=== PATIENT | male | born 1955 | race Caucasian/White ===

== ENCOUNTER 2021-11-04 10:14 | Outpatient (REF) | payer MEDICARE, SELFPAY ==
[2021-11-04 11:54] LABS: MANUAL DIFF FLAG NO
[2021-11-04 12:01] LABS: Basophils Percent Auto 0.5 % (0-2); Eosinophils Absolute Auto 0.1 X10*3/uL (0.0-0.4); Eosinophils Percent Auto 2.1 % (0-4); Hematocrit 41.7 % (42.0-52.0); Hemoglobin 13.6 g/dl (14.0-18.0); Imm Gran Abs Auto 0.02 X10*3/uL (0.00-0.03); Imm Gran Pct Auto 0.3 % (0.0-0.4); Lymphocytes Absolute Auto 2.9 X10*3/uL (1.2-4.9); Lymphocytes Percent Auto 45.8 % (20-40); Mean Corpuscular HGB Conc 32.6 g/dl (31.0-36.0); Mean Corpuscular Hemoglobin 31.2 pg (27.0-33.0); Mean Corpuscular Volume 95.6 fL (80.0-98.0); Mean Platelet Volume 9.6 fL (9.4-12.4); Monocytes Absolute Auto 0.6 X10*3/uL (0.1-1.2); Neutrophils Absolute Auto 2.6 x10*3/uL (2.0-8.3); Neutrophils Percent Auto 42.3 % (45-73); Platelet Count 327 X10*3/uL (160-400); Red Blood Count 4.36 X10*6/uL (4.60-5.80); Red Cell Distribution Width 12.4 % (11.0-16.0); White Blood Count 6.2 X10*3/uL (4.8-10.8)
[2021-11-04 12:39] LABS: Erythrocyte Sedimentation Rate 40 MM/HR (0-15)
[2021-11-09 17:37] LABS: Cyclic Citrullinated Peptide 137 UNITS
== END 2021-11-04 10:15 | disposition home or self-care (01) ==
LOC: HO.LAB 10:14
PROVIDERS: PCP Internal Medicine; Visit Provider Internal Medicine Rheumatology
DX: M05.9 Rheumatoid arthritis with rheumatoid factor, unspecified (principal); M19.071 Primary osteoarthritis, right ankle and foot; M19.072 Primary osteoarthritis, left ankle and foot; Z96.659 Presence of unspecified artificial knee joint; Z79.899 Other long term (current) drug therapy
CPT/HCPCS: 36415; 85025; 85652; 86200; 99212

== ENCOUNTER 2022-03-04 10:48 | Outpatient (REF) | payer MEDICARE, SELFPAY ==
[2022-03-04 13:17] LABS: MANUAL DIFF FLAG NO
[2022-03-04 13:23] LABS: Basophils Absolute Auto 0.1 X10*3/uL (0.0-0.2); Basophils Percent Auto 0.8 % (0-2); Eosinophils Absolute Auto 0.2 X10*3/uL (0.0-0.4); Eosinophils Percent Auto 2.3 % (0-4); Hematocrit 41.2 % (42.0-52.0); Hemoglobin 13.7 g/dl (14.0-18.0); Imm Gran Abs Auto 0.01 X10*3/uL (0.00-0.03); Imm Gran Pct Auto 0.2 % (0.0-0.4); Lymphocytes Absolute Auto 2.6 X10*3/uL (1.2-4.9); Lymphocytes Percent Auto 40.3 % (20-40); Mean Corpuscular HGB Conc 33.3 g/dl (31.0-36.0); Mean Corpuscular Volume 93.2 fL (80.0-98.0); Mean Platelet Volume 10.3 fL (9.4-12.4); Monocytes Absolute Auto 0.7 X10*3/uL (0.1-1.2); Monocytes Percent Auto 10.2 % (2-11); Neutrophils Percent Auto 46.2 % (45-73); Platelet Count 364 X10*3/uL (160-400); Red Blood Count 4.42 X10*6/uL (4.60-5.80); Red Cell Distribution Width 12.5 % (11.0-16.0); White Blood Count 6.5 X10*3/uL (4.8-10.8)
[2022-03-04 13:49] LABS: C Reactive Protein 0.74 mg/dL (< or = 0.50)
[2022-03-04 14:11] LABS: Erythrocyte Sedimentation Rate 38 MM/HR (0-15)
== END 2022-03-04 10:49 | disposition home or self-care (01) ==
LOC: HO.10HDL 10:48
PROVIDERS: Visit Provider Internal Medicine Rheumatology
DX: M65.9 Synovitis and tenosynovitis, unspecified (principal); M05.9 Rheumatoid arthritis with rheumatoid factor, unspecified; Z79.899 Other long term (current) drug therapy; Z96.659 Presence of unspecified artificial knee joint
CPT/HCPCS: 36415; 85025; 85652; 86140; 99212

== ENCOUNTER → 2022-08-03 11:06 | Outpatient (BNVA) | payer MEDICARE, SELFPAY | PROVIDERS: PCP Physician Assistant Medical; Visit Provider Internal Medicine Rheumatology | DX: M05.9 Rheumatoid arthritis with rheumatoid factor, unspecified (principal); M85.80 Other specified disorders of bone density and structure, unspecified site; M19.072 Primary osteoarthritis, left ankle and foot; M19.071 Primary osteoarthritis, right ankle and foot; Z96.659 Presence of unspecified artificial knee joint; Z79.899 Other long term (current) drug therapy | CPT/HCPCS: 99212 ==

== ENCOUNTER 2022-08-03 12:09 | Outpatient (REF) | payer MEDICARE, SELFPAY ==
[2022-08-03 14:40] LABS: Erythrocyte Sedimentation Rate 31 MM/HR (0-15)
[2022-08-07 14:48] LABS: Vitamin D 25-OH, D2 <4 ng/mL; Vitamin D 25-OH, D3 37 ng/mL; Vitamin D 25-OH, Total 37 ng/mL (30-100)
== END 2022-08-03 12:10 | disposition home or self-care (01) ==
LOC: HO.10HDL 12:09
PROVIDERS: Visit Provider Internal Medicine Rheumatology
DX: M85.80 Other specified disorders of bone density and structure, unspecified site (principal); M05.9 Rheumatoid arthritis with rheumatoid factor, unspecified; M19.071 Primary osteoarthritis, right ankle and foot; M19.072 Primary osteoarthritis, left ankle and foot; Z79.899 Other long term (current) drug therapy; Z96.651 Presence of right artificial knee joint
CPT/HCPCS: 36415; 82306; 85652; 86140

== ENCOUNTER → 2023-01-12 10:54 | Outpatient (BNVA) | payer MEDICARE, SELFPAY | PROVIDERS: PCP Physician Assistant Medical; Visit Provider Internal Medicine Rheumatology | DX: M05.9 Rheumatoid arthritis with rheumatoid factor, unspecified (principal); Z79.899 Other long term (current) drug therapy | CPT/HCPCS: 99212 ==

== ENCOUNTER 2023-05-26 11:35 | Outpatient (REF) | payer MEDICARE, SELFPAY ==
[2023-05-26 14:01] LABS: Erythrocyte Sedimentation Rate 34 MM/HR (0-15)
[2023-05-26 14:08] LABS: C Reactive Protein 0.12 mg/dL (< or = 0.50)
== END 2023-05-26 11:36 | disposition home or self-care (01) ==
LOC: HO.10HDL 11:35
PROVIDERS: Visit Provider Internal Medicine Rheumatology
DX: M05.9 Rheumatoid arthritis with rheumatoid factor, unspecified (principal); Z79.899 Other long term (current) drug therapy
CPT/HCPCS: 36415; 85652; 86140

== ENCOUNTER 2023-06-01 10:37 | Outpatient (AMB) | payer MEDICARE, SELFPAY ==
--- NOTE | 2023-06-01 10:50 | A.OFFVIS_ITS ---
Intake Vital Signs 06/01/23 10:51 Height 5 ft 3 in Weight 175 lb 11.335 oz BMI 31.1 BP 100/62 Blood Pressure Location Lt brachial Position Sitting Pulse 73 Pulse Source Pulse Oximeter Temp 97.2 F Temp Source Skin Pulse Oximetry (%) 98 Oxygen Delivery Method Room Air Intake Visit Reasons: ra Intake Note: Patient presents today to follow up on RA. 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 Accompanied by: Self / Same As Patient Allergies acetaminophen [From Excedrin Migraine] Allergy (Intermediate, Verified 06/01/23 10:51) Hives caffeine [From Excedrin Migraine] Allergy (Intermediate, Verified 06/01/23 10:51) Hives Penicillins Allergy (Intermediate, Verified 06/01/23 10:51) Hives Medication List - Last Reconciled 06/01/23 by Jarrod Petty MD adalimumab (Humira Pen) 40 mg subcut Q2W alendronate 70 mg PO QWEEK atorvastatin 20 mg PO DAILY cholecalciferol (vitamin D3) 25 mcg PO DAILY clonazepam 0.5 mg PO BEDTIME PRN trazodone 50 mg PO BEDTIME PRN vilazodone 40 mg PO DAILY HPI HPI Comments History of Present Illness Details The patient returns for evaluation of her rheumatoid arthritis. She remains on Humira 40 mg every 2 weeks. That seems to be working fine. She gets occasional discomfort in the feet as before. Her knee replacement seems to be functioning fine. She remains on the alendronate 70 mg once a week. This was started at the end of 2021. There have been no side effects with the alendronate. She is also on some vitamin-D supplement. She is followed in Psychiatry for anxiety and depression currently on vilazodone, trazodone, and clonazepam. [facility] Medical History (Updated 06/01/23 @ 11:21 by Jarrod Petty MD) Long-term use of immunosuppressant medication Osteoarthritis of foot, left Osteoarthritis of foot, right Seropositive rheumatoid arthritis Surgical History History of knee joint replacement Social History Household Members: Spouse Housing: Apartment Are you a primary child care specialist to a significant other at home: No Do you presently have visiting nurse or other home services: No 75 years or older and lives alone: No Alcohol intake: never Patient Tobacco Use Status: Former Tobacco user Years Smoked: Quit 1983 e-Cigarette/Vaping Use: Never Used service: No Current occupational status: retired Review of Systems Const Details: Negative for appetite change, weight change, fever, chills, malaise and fatigue Eyes Details: Negative for vision change, dry eyes,headaches and dizziness Card Details: Negative chest pain, edema and syncope Resp Details: Negative for SOB, cough and wheezing GI Details: Negative indigestion/heartburn, nausea, abdominal pain, bowel changes, diarrhea, constipation and bloody stool. Elie/Lymph Details: Negative for excessive bruising or bleeding. Physical Exam Vital Signs: Last Vital Signs Temp 97.2 F 06/01/23 10:51 Pulse 73 06/01/23 10:51 BP 100/62 06/01/23 10:51 Pulse Ox 98 06/01/23 10:51 Oxygen Delivery Method Room Air 06/01/23 10:51 BMI result Body Mass Index 31.1 APPEARANCE: Patient in no acute distress EYES no redness, pupils equal and reactive to light, eyelids normal EXTREMITIES: No edema, no calf tenderness, normal peripheral pulses. JOINT EXAM: Cervical Spine:.? Full range of motion without pain; no tenderness. Thoracic Spine:.? No scoliosis.? No tenderness on palpation. Lumbar Spine:.? Alignment normal.? Full range of motion without pain, no tenderness. Chest Wall:.? No tenderness, swelling, increased warmth or erythema. Hands:? Right:? Normal pain-free range of motion.? There is no flexor?tendon tenderness or triggering.? There is some slight nontender bony enlargement at the IP joint of the thumb. Otherwise there is no joint swelling or tenderness.. ? There is no thenar atrophy or sensory loss.? Left: Normal pain-free range of motion.? There is no triggering apparent on the tendons today.? There is no flexor tendon swelling or tenderness.? Elsewhere in the hand there is no? tenderness, swelling, increased warmth or erythema. Wrists:? Normal pain-free range of motion without tenderness, swelling, increased warmth or erythema. Elbows:. Normal pain-free range of motion without tenderness, swelling, increased warmth or erythema. Shoulders:.?? Full range of motion without pain. No tenderness, weakness, swelling, increased warmth or erythema. Hips:.? Full range of motion without pain. Hip bursa:.? No tenderness. Knees:? Right:? Normal pain-free range of motion.? Well-healed surgical scar with no tenderness, redness or swelling.? Left:? Normal pain-free range of motion with some slight medial compartment tenderness but no swelling, increased warmth or erythema.? There is no effusion or crepitation Ankles:.? Right: Slight pain with extremes of motion and some mild lateral tenderness but no swelling, redness or warmth.? Left:? Normal range of motion with some slight discomfort at the extremes of inversion and eversion with some minimal medial and lateral tenderness but no swelling, increased warmth or erythema. Feet:.? Right:? There is fusion of the right 1st MTP which is not tender today.? There is no soft tissue swelling, redness or warmth however.? Today there is no tenderness or swelling in the instep or MTPs.? No tenderness in the toes.? Left:? Minimal? discomfort with normal range of motion at the 1st MTP joint.? There is some slight tenderness at the 1st 2 MTP joints. There is slight hallux valgus deformity at the 1st toe.? In the rest of the foot there is no effusion, swelling, increased warmth or erythema. Tender points:? No tenderness to digital palpation at the occiput, trapezius, second rib, lateral epicondyle, knees, greater trochanter and gluteal area bilaterally. ? Results Reviewed Results Reviewed: Laboratory Tests 08/03/22 08/03/22 05/26/23 12:12 12:12 11:40 ESR 31 H 34 H C-Reactive Protein 0.60 H 05/26/23 11:40 ESR C-Reactive Protein 0.12 Assessment & Plan Assessment & Plan (1) History of knee joint replacement: Comment: 2019 Code(s): Z96.659 - Presence of unspecified artificial knee joint (2) Long-term use of immunosuppressant medication: Code(s): Z79.899 - Other fdc (current) drug therapy (3) Osteopenia: Comment: 03/05:Lumbar Spine T-score is -2.1. This is considered osteopenia by WHO criteria. 23% risk of major osteoporotic fracture and a 5.3% risk of hip fracture over the next 10 years. (World Health Organization Fracture Risk Left Hip T-score is -2.2.This is considered osteopenia by WHO criteria. alendronate started 07/2022 Code(s): M85.80 - Other specified disorders of bone density and structure, unspecified site (4) Seropositive rheumatoid arthritis: Comment: Onset February 2012, CCP and RF sero-positive. Methotrexate started 04/26; Enbrel added 04/27; methotrexate stopped 04/28 due to elevated lft's. Plaquenil added 06/28(eye exam OK 02/26, 04/29, 10/28, 04/30, 06/30, 12/29,07/01, 12/30, 07/02, 12/31, 07/03,04/03, 10/2020). 06/2021 - Hydroxychloroquine stopped due to nausea 2015: Humira in place of Enbrel to try to improve response Code(s): M05.9 - Rheumatoid arthritis with rheumatoid factor, unspecified Plan Rheumatoid arthritis with good control of synovitis with current treatment. Inflammatory markers remain markedly improved. The knee replacement seems to be functioning fine for now. She is toerating the alendronate for her osteopenia. She will continue with alendronate and Humira as I do not see any adverse effects from the medication. She was advised to get the influenza and COVID vaccinations this fall. Follow-up in about 5 months would be reasonable with lab work before that visit. Orders: Orders Complete Blood Count Auto Diff Today M05.9 - Rheumatoid arthritis with rheumato id factor, unspecified, Z79.899 - Other fdc (current) drug therapy Erythrocyte Sedimentation Rate Today M05.9 - Rheumatoid arthritis with rheumatoid factor, unspecified C Reactive Protein Today M05.9 - Rheumatoid arthritis with rheumatoid factor, unspecified Coding Level of Care Code Est Pt Level 3 (73090) Diagnoses History of knee joint replacement Z96.659 Long-term use of immunosuppressant medication Z79.899 Osteopenia M85.80 Seropositive rheumatoid arthritis M05.9
[2023-06-01 10:51] VITALS: BP 100/62; PULSE 73; TEMP 36.2; O2SAT 98; BMI 31.1
== END 2023-06-01 11:24 | disposition home or self-care (01) ==
PROVIDERS: PCP Physician Assistant Medical; Visit Provider Internal Medicine Rheumatology
DX: M05.79 Rheumatoid arthritis with rheumatoid factor of multiple sites without organ or systems involvement (principal); Z96.659 Presence of unspecified artificial knee joint; Z79.899 Other long term (current) drug therapy; M85.80 Other specified disorders of bone density and structure, unspecified site
CPT/HCPCS: 99213

== ENCOUNTER → 2023-06-01 10:37 | Outpatient (BNVA) | payer MEDICARE, SELFPAY | PROVIDERS: PCP Physician Assistant Medical; Visit Provider Internal Medicine Rheumatology | DX: M05.9 Rheumatoid arthritis with rheumatoid factor, unspecified (principal); M85.80 Other specified disorders of bone density and structure, unspecified site; Z96.659 Presence of unspecified artificial knee joint; Z79.899 Other long term (current) drug therapy | CPT/HCPCS: 99212 ==

== ENCOUNTER 2023-10-28 11:09 | Outpatient (REF) | payer MEDICARE, SELFPAY ==
[2023-10-28 11:29] LABS: MANUAL DIFF FLAG NO
[2023-10-28 12:23] LABS: Basophils Percent Auto 0.4 % (0-2); Eosinophils Absolute Auto 0.1 X10*3/uL (0.0-0.4); Eosinophils Percent Auto 1.4 % (0-4); Hemoglobin 14.1 g/dl (14.0-18.0); Imm Gran Abs Auto 0.02 X10*3/uL (0.00-0.03); Imm Gran Pct Auto 0.3 % (0.0-0.4); Lymphocytes Percent Auto 39.4 % (20-40); Mean Corpuscular HGB Conc 33.6 g/dl (31.0-36.0); Mean Corpuscular Hemoglobin 32.3 pg (27.0-33.0); Mean Corpuscular Volume 96.3 fL (80.0-98.0); Mean Platelet Volume 10.3 fL (9.4-12.4); Monocytes Absolute Auto 0.8 X10*3/uL (0.1-1.2); Monocytes Percent Auto 10.1 % (2-11); Neutrophils Absolute Auto 3.7 x10*3/uL (2.0-8.3); Neutrophils Percent Auto 48.4 % (45-73); Platelet Count 326 X10*3/uL (160-400); Red Blood Count 4.36 X10*6/uL (4.60-5.80); Red Cell Distribution Width 12.1 % (11.0-16.0); White Blood Count 7.7 X10*3/uL (4.8-10.8)
[2023-10-28 12:56] LABS: C Reactive Protein < 0.10 mg/dL (< or = 0.50)
[2023-10-28 13:28] LABS: Erythrocyte Sedimentation Rate 23 MM/HR (0-15)
== END 2023-10-28 11:10 | disposition home or self-care (01) ==
LOC: HO.LAB 11:09
PROVIDERS: Visit Provider Internal Medicine Rheumatology
DX: M05.9 Rheumatoid arthritis with rheumatoid factor, unspecified (principal); Z79.899 Other long term (current) drug therapy
CPT/HCPCS: 36415; 85025; 85652; 86140

== ENCOUNTER 2023-11-01 14:22 | Outpatient (AMB) | payer MEDICARE, SELFPAY ==
[2023-11-01 14:30] VITALS: BP 112/66; PULSE 79; O2SAT 97; BMI 31.4
--- NOTE | 2023-11-01 14:30 | A.OFFVIS_ITS ---
Intake Vital Signs 11/01/23 14:30 Height 5 ft 3 in Weight 177 lb 0.499 oz BMI 31.4 BP 112/66 Blood Pressure Location Rt brachial Position Sitting Pulse 79 Pulse Source Pulse Oximeter Pulse Oximetry (%) 97 Oxygen Delivery Method Room Air Intake Visit Reasons: ra Intake Note: Patient last seen 06/01/[address] Petty, presents today for follow up and test results. 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 Consultant Required: No Accompanied by: Self / Same As Patient Allergies acetaminophen [From Excedrin Migraine] Allergy (Intermediate, Verified 11/01/23 14:35) Hives caffeine [From Excedrin Migraine] Allergy (Intermediate, Verified 11/01/23 14:35) Hives Penicillins Allergy (Intermediate, Verified 11/01/23 14:35) Hives Medication List - Last Reconciled 11/01/23 by Amanuel Romero MD adalimumab (Humira Pen) 40 mg subcut Q2W alendronate 70 mg PO QWEEK atorvastatin 20 mg PO DAILY cholecalciferol (vitamin D3) 25 mcg PO DAILY clonazepam 0.5 mg PO BEDTIME PRN dextroamphetamine-amphetamine 10 mg ER 1 cap PO QAM trazodone 50 mg PO BEDTIME PRN vilazodone 40 mg PO DAILY HPI HPI Comments History of Present Illness Details 68-year-old female with seropositive RA returns for follow-up. She is on Humira every other week. On alendronate 70 mg weekly. She has no complaints today. Compliant with medications. She denies any cough or shortness of breath Most recent history by Dr. Petty 05/2023: The patient returns for evaluation of her rheumatoid arthritis. She remains on Humira 40 mg every 2 weeks. That seems to be working fine. She gets occasional discomfort in the feet as before. Her knee replacement seems to be functioning fine. She remains on the alendronate 70 mg once a week. This was started at the end of 2021. There have been no side effects with the alendronate. She is also on some vitamin-D supplement. She is followed in Psychiatry for anxiety and depression currently on vilazodone, trazodone, and clonazepam. [facility] Medical History Long-term use of immunosuppressant medication Osteoarthritis of foot, left Osteoarthritis of foot, right Seropositive rheumatoid arthritis Surgical History History of knee joint replacement Social History Household Members: Spouse Housing: Apartment Are you a primary managed care provider to a significant other at home: No Do you presently have visiting nurse or other home services: No 75 years or older and lives alone: No Alcohol intake: never Patient Tobacco Use Status: Former Tobacco user Years Smoked: Quit 1983 e-Cigarette/Vaping Use: Never Used service: No Current occupational status: retired Review of Systems Card Denies dyspnea Resp Denies cough and Denies dyspnea Musc Denies arthralgias, Denies joint swelling and Denies stiffness Physical Exam Vital Signs: Last Vital Signs Pulse 79 11/01/23 14:30 BP 112/66 11/01/23 14:30 Pulse Ox 97 11/01/23 14:30 Oxygen Delivery Method Room Air 11/01/23 14:30 BMI result Body Mass Index 31.4 Const General: cooperative, healthy appearing and comfortable Nutritional Appearance: obese Orientation/consciousness: patient oriented x3 Limitations: no limitations HEENT Head: Yes normocephalic and Yes atraumatic Mouth: moist mucous membranes Resp Effort & Inspection: normal respiratory effort and able to speak in complete sentences Auscultation: clear to auscultation bilaterally Cardio Rate: regular rate Skin General skin exam: dry skin Neuro General: patient oriented x3 Extrem Other: No active synovitis Normal nailfold capillaroscopy Normal range of motion of hands, wrists, elbows and shoulders without pain Assessment & Plan Assessment & Plan (1) Seropositive rheumatoid arthritis: Comment: ++RF++CCP Onset 02/2012 MTX 04/2012; Enbrel added 04/2013; methotrexate stopped 04/2014 due to elevated lft's.HCQ added 06/2014(eye exam OK 02/26, 04/29, 10/28, 04/30, 06/30, 12/29,07/01, 12/30, 07/02, 12/31, 07/03,04/03, 10/2020). 06/2021 - Hydroxychloroquine stopped due to nausea 06/2016: Humira effective Code(s): M05.9 - Rheumatoid arthritis with rheumatoid factor, unspecified Plan: This is a 68-year-old female with seropositive RA who presents for follow-up. This is her 1st visit with me. She used to follow-up with Dr. Petty. She is doing quite well on Humira 40 mg every other week. Continue Humira 40 mg every other week. Labs before next visit in 5 months (2) Long-term use of immunosuppressant medication: Code(s): Z79.899 - Other group home (current) drug therapy Plan: Patient to hold Humira for any signs of infection or fever and call the clinic (3) Osteopenia: Comment: 03/05:Lumbar Spine T-score is -2.1. This is considered osteopenia by WHO criteria. 23% risk of major osteoporotic fracture and a 5.3% risk of hip fracture over the next 10 years. (World Health Organization Fracture Risk Left Hip T-score is -2.2.This is considered osteopenia by WHO criteria. al endronate started 07/2022 Code(s): M85.80 - Other specified disorders of bone density and structure, unspecified site Qualifiers: Osteopenia location: multiple sites Qualified Code(s): M85.89 - Other specified disorders of bone density and structure, multiple sites Plan: On alendronate 70 mg weekly. Well-tolerated. On vitamin-D 1000 units daily. Advised patient to increase her calcium weekly by increasing her dairy products such as low-fat yogurt, milk Will check vitamin-D level before next visit. Plan to repeat DEXA around 07/2024 Orders: Orders C Reactive Protein 5 Months M05.9 - Rheumatoid arthritis with rheumatoid factor, unspecified, Z79.899 - Other group home (current) drug therapy T Spot TB 5 Months Z11.7 - Encounter for testing for latent tuberculosis infection Vitamin D 25-OH (D2 and D3) 5 Months Z13.21 - Encounter for screening for nutritional disorder Complete Blood Count Auto Diff 5 Months M05.9 - Rheumatoid arthritis with rheumatoid factor, unspecified, Z79.899 - Other group home (current) drug therapy Comprehensive Met. Panel 5 Months M05.9 - Rheumatoid arthritis with rheumatoid factor, unspecified, Z79.899 - Other salvage determiner (current) drug therapy Erythrocyte Sedimentation Rate 5 Months M05.9 - Rheumatoid arthritis with rheumatoid factor, unspecified, Z79.899 - Other salvage determiner (current) drug therapy Hepatitis A,B,C Profile 5 Months Z11.59 - Encounter for screening for other viral diseases Coding Level of Care Code Est Pt Level 4 (17028) Diagnoses Seropositive rheumatoid arthritis M05.9 Long-term use of immunosuppressant medication Z79.899 Osteopenia of multiple sites M85.89 Osteopenia location: multiple sites
== END 2023-11-01 14:55 | disposition home or self-care (01) ==
PROVIDERS: PCP Physician Assistant Medical; Visit Provider Student in an Organized Health Care Education/Training Program
DX: M05.79 Rheumatoid arthritis with rheumatoid factor of multiple sites without organ or systems involvement (principal); Z79.899 Other long term (current) drug therapy; M85.89 Other specified disorders of bone density and structure, multiple sites
CPT/HCPCS: 99214

== ENCOUNTER → 2023-11-01 14:22 | Outpatient (BNVA) | payer MEDICARE, SELFPAY | PROVIDERS: PCP Physician Assistant Medical; Visit Provider Student in an Organized Health Care Education/Training Program | DX: M05.9 Rheumatoid arthritis with rheumatoid factor, unspecified (principal); M85.89 Other specified disorders of bone density and structure, multiple sites; Z79.620 Long term (current) use of immunosuppressive biologic; Z79.83 Long term (current) use of bisphosphonates | CPT/HCPCS: 99212 ==

== ENCOUNTER 2024-04-02 11:43 | Outpatient (REF) | payer MEDICARE, SELFPAY ==
[2024-04-02 13:46] LABS: Alanine Aminotransferase 15 U/L (0-31); Albumin Level 3.8 g/dL (3.5-5.0); Alkaline Phosphatase 53 U/L (39-117); Anion Gap 14 (12-20); Aspartate Amino Transferase 19 U/L (5-31); Bilirubin Total 0.6 mg/dL (0.0-1.0); Blood Urea Nitrogen 17 mg/dL (9-16); Carbon Dioxide 22 mmol/L (22-29); Chloride 108 mmol/L (96-108); Estimated Glomerular Filt Rate > 60; Glucose Random 149 mg/dL (60-115); Potassium 4.2 mmol/L (3.3-5.1); Sodium 140 mmol/L (135-145); Total Protein 7.4 g/dL (6.5-8.0)
[2024-04-02 14:02] LABS: Erythrocyte Sedimentation Rate 51 MM/HR (0-20)
[2024-04-05 09:02] LABS: TS Negative Control Passed; TS Panel A 0; TS Panel B 0; TS Positive Control Passed; TSpotTB Negative (Negative)
[2024-04-07 14:12] LABS: Vitamin D 25-OH, D2 <4 ng/mL; Vitamin D 25-OH, D3 37 ng/mL; Vitamin D 25-OH, Total 37 ng/mL (30-100)
== END 2024-04-02 11:44 | disposition home or self-care (01) ==
LOC: HO.10HDL 11:43
PROVIDERS: Visit Provider Student in an Organized Health Care Education/Training Program
DX: M05.9 Rheumatoid arthritis with rheumatoid factor, unspecified (principal); Z11.7 Encounter for testing for latent tuberculosis infection; Z13.21 Encounter for screening for nutritional disorder; Z79.899 Other long term (current) drug therapy
CPT/HCPCS: 36415; 80053; 82306; 85652; 86140; 86481

== ENCOUNTER 2024-04-11 13:55 | Outpatient (AMB) | payer MEDICARE, SELFPAY ==
[2024-04-11 14:00] VITALS: BP 126/72; PULSE 97; O2SAT 97; BMI 32.9
--- NOTE | 2024-04-11 14:00 | MHC.OFFVIS ---
Vital Signs 04/11/24 14:00 Height 5 ft 3 in Weight 185 lb 13.595 oz BMI 32.9 BP 126/72 Blood Pressure Location Lt brachial Position Sitting Pulse 97 Pulse Source Pulse Oximeter Pulse Oximetry (%) 97 Oxygen Delivery Method Room Air Intake Visit Reasons: RA Intake Note: Patient presents today for follow up on RA and lab review, she was last seen on 11/01/2023.Patient complains of right hand pain, lasts all through the day, does not change, not worse at day or night, all day through, hard to find sleep at night. Allergies caffeine [From Excedrin Migraine] Allergy (Intermediate, Verified 11/01/23 14:35) Hives Penicillins Allergy (Intermediate, Verified 11/01/23 14:35) Hives Medication List - Last Reconciled 04/11/24 by Amanuel Romero MD adalimumab (Humira Pen) 40 mg subcut Q2W alendronate 70 mg PO QWEEK atorvastatin 20 mg PO DAILY cholecalciferol (vitamin D3) 25 mcg PO DAILY clonazepam 0.5 mg PO BEDTIME PRN dextroamphetamine-amphetamine 10 mg ER 1 cap PO QAM dextroamphetamine-amphetamine 20 mg ER 1 cap PO QAM trazodone 50 mg PO BEDTIME PRN venlafaxine ER (Effexor XR) 37.5 mg PO DAILY vilazodone 40 mg PO DAILY HPI Comments Details: 69-year-old female with seropositive RA returns for follow-up. She is on Humira every other week. On alendronate 70 mg weekly. She states that 3 weeks ago she started having pain in her right hand flexor tendons. She was prescribed naproxen for 10 days by her PCP which provided little relief and the pain returned. Denies any other joint involvement. Denies any recent illnesses. [facility] Medical History Long-term use of immunosuppressant medication Osteoarthritis of foot, left Osteoarthritis of foot, right Seropositive rheumatoid arthritis Surgical History History of knee joint replacement Social History Household Members: Spouse Housing: Apartment Are you a primary client care consultant to a significant other at home: No Do you presently have visiting nurse or other home services: No 75 years or older and lives alone: No Alcohol intake: never Patient Tobacco Use Status: Former Tobacco user Years Smoked: Quit 1983 e-Cigarette/Vaping Use: Never Used service: No Current occupational status: retired Review of Systems [facility] Reports arthralgias, Reports joint swelling, Reports limited range of motion and Reports stiffness Physical Exam Vital Signs: Last Vital Signs Pulse 97 04/11/24 14:00 BP 126/72 04/11/24 14:00 Pulse Ox 97 04/11/24 14:00 Oxygen Delivery Method Room Air 04/11/24 14:00 BMI result Body Mass Index 32.9 Const General: cooperative, healthy appearing and comfortable Nutritional Appearance: obese Orientation/consciousness: patient oriented x3 Limitations: no limitations HEENT Head: Yes normocephalic and Yes atraumatic Mouth: moist mucous membranes Resp Effort & Inspection: normal respiratory effort and able to speak in complete sentences Auscultation: clear to auscultation bilaterally Cardio Rate: regular rate Skin General skin exam: dry skin Neuro General: patient oriented x3 Extrem Other: Mild puffiness of right 3rd MCP Right 3rd and 4th MCP tenderness Swelling of right 3rd flexor tendon Tenderness of right 3rd and 4th flexor tendons Normal nailfold capillaroscopy Normal range of motion of hands, wrists, elbows and shoulders without pain Assessment & Plan Assessment & Plan (1) Seropositive rheumatoid arthritis: Comment: ++RF++CCP Onset 02/2012 MTX 04/2012; Enbrel added 04/2013; methotrexate stopped 04/2014 due to elevated lfts .HCQ added 06/2014, 06/2021 - Hydroxychloroquine stopped due to nausea 06/2016: Humira monotherapy effective Code(s): M05.9 - Rheumatoid arthritis with rheumatoid factor, unspecified Category: Medical Plan: This is a 69-year-old female with seropositive RA who presents for follow-up. She remains on Humira 40 mg every other week. She gets the Humira from the company. She is having a minor flare-up affecting her right hand I will prescribe a prednisone taper Continue Humira 40 mg every other week Labs before next visit in 5 months (2) Long-term use of immunosuppressant medication: Code(s): Z79.899 - Other residential (current) drug therapy Category: Medical Plan: Patient to hold Humira for any signs of infection or fever and call the clinic (3) Osteopenia: Comment: 03/05:Lumbar Spine T-score is -2.1. This is considered osteopenia by WHO criteria. 23% risk of major osteoporotic fracture and a 5.3% risk of hip fracture over the next 10 years. (World Health Organization Fracture Risk Left Hip T-score is -2.2.This is considered osteopenia by WHO criteria. alendronate started 07/2022 Code(s): M85.80 - Other specified disorders of bone density and structure, unspecified site Category: Medical Qualifiers: Osteopenia location: multiple sites Qualified Code(s): M85.89 - Other specified disorders of bone density and structure, multiple sites Plan: On alendronate 70 mg weekly. Well-tolerated. On vitamin-D 1000 units daily. Prescribed by PCP Repeat DEXA 07/2024 Plan I spent 30 minutes reviewing patient's chart, evaluating patient, ordering diagnostic workup, counseling patient and documenting in the chart Orders: Orders Complete Blood Count Auto Diff 5 Months M05.9 - Rheumatoid arthritis with rheumatoid factor, unspecified Comprehensive Met. Panel 5 Months M05.9 - Rheumatoid arthritis with rheumatoid factor, unspecified Erythrocyte Sedimentation Rate 5 Months M05.9 - Rheumatoid arthritis with rheumatoid factor, unspecified XR DEXA axial skeleton 07/16/24 M81.0 - Age-related osteoporosis without current pathological fracture C Reactive Protein 5 Months M05.9 - Rheumatoid arthritis with rheumatoid factor, unspecified Medications: New prednisone Take 4 tabs by mouth daily for 5 days, 3 tabs daily for 5 days, 2 tabs daily for 5 days then 1 tab daily for 5 days then stop 50 tabs 0RF Coding Level of Care Code Est Pt Level 4 (74440) Diagnoses Seropositive rheumatoid arthritis M05.9 Long-term use of immunosuppressant medication Z79.899 Osteopenia of multiple sites M85.89 Osteopenia location: multiple sites
== END 2024-04-11 14:20 | disposition home or self-care (01) ==
PROVIDERS: PCP Physician Assistant Medical; Visit Provider Student in an Organized Health Care Education/Training Program
DX: M05.79 Rheumatoid arthritis with rheumatoid factor of multiple sites without organ or systems involvement (principal); Z79.899 Other long term (current) drug therapy; M85.89 Other specified disorders of bone density and structure, multiple sites
CPT/HCPCS: 99214

== ENCOUNTER → 2024-04-11 13:55 | Outpatient (BNVA) | payer MEDICARE, SELFPAY | PROVIDERS: PCP Physician Assistant Medical; Visit Provider Student in an Organized Health Care Education/Training Program | DX: M05.9 Rheumatoid arthritis with rheumatoid factor, unspecified (principal); M85.89 Other specified disorders of bone density and structure, multiple sites; M81.0 Age-related osteoporosis without current pathological fracture; Z79.899 Other long term (current) drug therapy | CPT/HCPCS: 99212 ==

== ENCOUNTER 2024-07-17 12:48 | Outpatient (REF) | payer MEDICARE, SELFPAY ==
--- NOTE | ~2024-07-17 | MM_ITS ---
EXAMINATION: BONE DENSITOMETRY CLINICAL INDICATION: Age-related osteoporosis without current pathological fracture. COMPARISON: This is the patient's baseline examination. TECHNIQUE: Using a [employer] DXA System (software version: 13.1) manufactured by [employer], dual-energy x-ray absorptiometry was performed of the lumbar spine and left hip. The images are of good technical quality. Summary results are attached. FINDINGS: LEFT FEMUR, NECK: BMD 0.798 g/cm2, Z-score -0.5, T-score -1.7, osteopenia. LEFT FEMUR, TOTAL: BMD 0.949 g/cm2, Z-score 0.5, T-score -0.5, normal. AP SPINE L1-L3 (excluding L4): The data of L1-L4 has been changed to exclude the L4 vertebral body, because significant degenerative change at this level may cause overestimation of lumbar spine density. BMD 1.011 g/cm2, Z-score -0.4, T-score -1.3, osteopenia. IDENTIFIED RISK FACTORS: Bilateral oophorectomy, early menopause, hysterectomy, rheumatoid arthritis, secondary osteoporosis. HISTORY OF FRACTURE: None listed. MEDICATIONS: Vitamin D, bisphosphonate. MM/XR DEXA axial skeleton IMPRESSION: 1. DIAGNOSIS: Osteopenia based on the lowest T-score value of -1.7 in the femoral neck applying World Health Organization criteria. 2. 10-YEAR FRACTURE RISK PREDICTION, FRAX: Not performed in this patient on estrogen or bone building treatments. 3. Treatment Recommendations: NOF guidelines recommend consideration for treatment in postmenopausal women and men age 50 and older presenting with the following: -A hip or vertebral (clinical or morphometric) fracture. -T-score less than or equal to -2.5 at the femoral neck or spine after appropriate evaluation to exclude secondary causes. -Low bone mass at the hip or spine and a 10-year fracture probability by FRAX of greater than or equal to 3% for hip fracture or greater than or equal to 20% for major osteoporotic fracture based on the [place] adapted WHO algorithm. 4. Other Recommendations: All treatment decisions require clinical judgment and consideration of individual patient factors, including patient preferences, comorbidities, previous drug use, risk factors not captured in the FRAX model (e.g. frailty, falls, vitamin D deficiency, increased bone turnover, interval significant decline in bone density) and possible under or overestimation of fracture risk by FRAX. Additional medical evaluation for secondary cause of low bone mineral density may be appropriate. FUTURE SCAN RECOMMENDATION: People with diagnosed cases of osteoporosis or at high risk for fracture should have regular bone mineral density tests. For patients eligible for Medicare, routine testing is allowed once every 2 years. The testing frequency can be increased to one year for patients who have rapidly progressing disease, those who are receiving or discontinuing medical therapy to restore bone mass, or have additional risk factors. Electronically signed by: Jose Barney MD 07/18/2024 03:25 PM MALLORIE CIFUENTES
== END 2024-07-17 12:49 | disposition home or self-care (01) ==
LOC: HO.MAMMO 12:48
PROVIDERS: PCP Internal Medicine; Visit Provider Student in an Organized Health Care Education/Training Program
DX: M81.0 Age-related osteoporosis without current pathological fracture (principal)
CPT/HCPCS: 77080

== ENCOUNTER 2024-08-21 10:39 | Outpatient (AMB) | payer MEDICARE, SELFPAY ==
--- NOTE | 2024-08-21 10:49 | A.OFFVIS_ITS ---
Vital Signs 08/21/24 10:53 Height 5 ft 3 in Weight 188 lb 11.451 oz BMI 33.4 BP 134/90 H Blood Pressure Location Lt brachial Position Sitting Pulse 94 Pulse Source Pulse Oximeter Pulse Oximetry (%) 98 Oxygen Delivery Method Room Air Intake Visit Reasons: RA Intake Note: Patient presents for RA. Allergies caffeine [From Excedrin Migraine] Allergy (Intermediate, Verified 08/21/24 10:53) Hives Penicillins Allergy (Intermediate, Verified 08/21/24 10:53) Hives Medication List - Last Reconciled 08/21/24 by Amanuel Romero MD adalimumab (Humira Pen) 40 mg subcut Q2W alendronate 70 mg PO QWEEK atorvastatin 20 mg PO DAILY cholecalciferol (vitamin D3) 25 mcg PO DAILY clonazepam 0.5 mg PO BEDTIME PRN dextroamphetamine-amphetamine 10 mg ER 1 cap PO QAM dextroamphetamine-amphetamine 20 mg ER 1 cap PO QAM trazodone 50 mg PO BEDTIME PRN venlafaxine ER (Effexor XR) 37.5 mg PO DAILY vilazodone 40 mg PO DAILY HPI Comments Details: 69-year-old female with seropositive RA returns for follow-up. She is on Humira every other week. On alendronate 70 mg weekly. She states that since March she has been having a productive cough. She was evaluated by a physician and started on Claritin and Mucinex, it did not help much, she was evaluated by another assistant family teacher and was prescribed antibiotics, she also had a chest x-ray, per patient the chest x-ray was clear. She was then prescribed an inhaler. She states that her symptoms are persistent. She denies having a fever. He states that a CT scan of the chest was ordered. She denies having any MSK complaints today. [facility] Medical History Long-term use of immunosuppressant medication Osteoarthritis of foot, left Osteoarthritis of foot, right Seropositive rheumatoid arthritis Surgical History History of knee joint replacement Social History Household Members: Spouse Housing: Apartment Are you a primary customer care specialist to a significant other at home: No Do you presently have visiting nurse or other home services: No 75 years or older and lives alone: No Alcohol intake: never Patient Tobacco Use Status: Former Tobacco user Years Smoked: Quit 1983 e-Cigarette/Vaping Use: Never Used service: No Current occupational status: retired Review of Systems Resp Reports cough and Reports excessive phlegm production Musc Denies arthralgias, Denies joint swelling and Denies stiffness Physical Exam Vital Signs: Last Vital Signs Pulse 94 08/21/24 10:53 BP 134/90 H 08/21/24 10:53 Pulse Ox 98 08/21/24 10:53 Oxygen Delivery Method Room Air 08/21/24 10:53 BMI result Body Mass Index 33.4 Const General: cooperative, healthy appearing and comfortable Nutritional Appearance: obese Orientation/consciousness: patient oriented x3 Limitations: no limitations HEENT Head: Yes normocephalic and Yes atraumatic Mouth: moist mucous membranes Resp Effort & Inspection: normal respiratory effort, able to speak in complete sentences and Actively coughing Quality: wet Auscultation: clear to auscultation bilaterally Cardio Rate: regular rate Skin General skin exam: dry skin Neuro General: patient oriented x3 Extrem Other: No active synovitis today Normal nailfold capillaroscopy Normal range of motion of hands, wrists, elbows and shoulders without pain Assessment & Plan Assessment & Plan (1) Seropositive rheumatoid arthritis: Comment: ++RF++CCP Onset 02/2012 MTX 04/2012; Enbrel added 04/2013; methotrexate stopped 04/2014 due to elevated lfts .HCQ added 06/2014, 06/2021 - Hydroxychloroquine stopped due to nausea 06/2016: Humira monotherapy effective Code(s): M05.9 - Rheumatoid arthritis with rheumatoid factor, unspecified Category: Medical Plan: This is a 69-year-old female with seropositive RA who presents for follow-up. She remains on Humira 40 mg every other week. She gets the Humira from the company. She is doing well overall with no active synovitis. Since March patient has been having a productive cough, it did not improve with Mucinex, Claritin, antibiotics, inhalers. Denied having a fever. Per patient chest x-ray was clear, a CT scan was ordered by other providers While her symptoms are not consistent with an infection, given the potential for immune suppression with Humira advised patient to skip her next Humira dose then resume Humira normally Labs before next visit in 4 months (2) Long-term use of immunosuppressant medication: Code(s): Z79.899 - Other group home (current) drug therapy Category: Medical Plan: Side effects of Humira were discussed with the patient in detail including increased risk of infection, demyelinating disease, reactivation of latent TB, possible increased risk of solid and skin tumors. Patient fully aware. (3) Osteopenia: Comment: 03/05:Lumbar Spine T-score is -2.1. This is considered osteopenia by WHO criteria. 23% risk of major osteoporotic fracture and a 5.3% risk of hip fracture over the next 10 years. (World Health Organization Fracture Risk Left Hip T-score is -2.2.This is considered osteopenia by WHO criteria. alendronate started 07/2022 Repeat DEXA 07/2024 Left femur neck T-score -1.7 Left femur total T-score - 0.5 L-spine T-score -1.3 Code(s): M85.80 - Other specified disorders of bone density and structure, unspecified site Category: Medical Qualifiers: Osteopenia location: multiple sites Qualified Code(s): M85.89 - Other specified disorders of bone density and structure, multiple sites Plan: On alendronate 70 mg weekly. Well-tolerated. On vitamin-D 1000 units daily. Prescribed by PCP Repeat DEXA showed improving bone density. Continue with alendronate Plan I spent 30 minutes reviewing patient's chart, evaluating patient, ordering diagnostic workup, counseling patient and documenting in the chart Orders: Orders Complete Blood Count Auto Diff 4 Months M05.9 - Rheumatoid arthritis with rheumatoid factor, unspecified Comprehensive Met. Panel 4 Months M05.9 - Rheumatoid arthritis with rheumatoid factor, unspecified T Spot TB 4 Months Z11.7 - Encounter for testing for latent tuberculosis infection C Reactive Protein 4 Months M05.9 - Rheumatoid arthritis with rheumatoid factor, unspecified Erythrocyte Sedimentation Rate 4 Months M05.9 - Rheumatoid arthritis with rheumatoid factor, unspecified Hepatitis A,B,C Profile 4 Months Z11.59 - Encounter for screening for other viral diseases Medications: Discontinued prednisone Discontinued Reason: Patient Completed Course Take 4 tabs by mouth daily for 5 days, 3 tabs daily for 5 days, 2 tabs daily for 5 days then 1 tab daily for 5 days then stop 50 tabs 0RF Coding Level of Care Code Est Pt Level 4 (90060) Complex EM visit Add On G2211 Diagnoses Seropositive rheumatoid arthritis M05.9 Long-term use of immunosuppressant medication Z79.899 Osteopenia of multiple sites M85.89 Osteopenia location: multiple sites
[2024-08-21 10:53] VITALS: BP 134/90; PULSE 94; O2SAT 98; BMI 33.4
== END 2024-08-21 11:17 | disposition home or self-care (01) ==
PROVIDERS: PCP Internal Medicine; Visit Provider Student in an Organized Health Care Education/Training Program
DX: M05.79 Rheumatoid arthritis with rheumatoid factor of multiple sites without organ or systems involvement (principal); Z79.899 Other long term (current) drug therapy; M85.89 Other specified disorders of bone density and structure, multiple sites
CPT/HCPCS: 99214; G2211

== ENCOUNTER → 2024-08-21 10:39 | Outpatient (BNVA) | payer MEDICARE, SELFPAY | PROVIDERS: PCP Internal Medicine; Visit Provider Student in an Organized Health Care Education/Training Program | DX: M05.9 Rheumatoid arthritis with rheumatoid factor, unspecified (principal); M85.89 Other specified disorders of bone density and structure, multiple sites; Z79.899 Other long term (current) drug therapy | CPT/HCPCS: 99212 ==

== ENCOUNTER 2024-12-07 13:18 | Outpatient (AMB) | payer MEDICARE, SELFPAY ==
--- NOTE | 2024-12-07 13:24 | A.OFFVIS_ITS ---
Vital Signs 12/07/24 13:25 Height 5 ft 3 in Weight 192 lb 14.472 oz BMI 34.2 BP 110/60 Blood Pressure Location Lt brachial Position Sitting Pulse 99 Pulse Source Pulse Oximeter Pulse Oximetry (%) 97 Oxygen Delivery Method Room Air Intake Visit Reasons: cough/post nasal drip Allergies caffeine [From Excedrin Migraine] Allergy (Intermediate, Verified 08/21/24 10:53) Hives Penicillins Allergy (Intermediate, Verified 08/21/24 10:53) Hives dust Allergy (Mild, Uncoded 12/07/24 13:31) Unknown HPI Comments Details: The patient is here for pulmonary evaluation. The patient is a 69 year woman with known history of rheumatoid arthritis currently on Humira who apparently presents with a chronic cough. The patient was in her usual state health until April when she was sick with a URI and chest congestion. The patient was evaluated in urgent care and she was treated and released. After that she started developing a cough. The cough tends to be moderate severe. Typically worse at nighttime. The cough can sometimes be productive bringing up some thick white phlegm. She has been evaluated multiple times for this including taking a course of prednisone and also a rescue inhaler in addition to that had been given a course of antibiotics. She had not seen any significant improvement so therefore she had further testing including PFTs that I do not have right now and she also underwent a CT scan of the chest which I did review the report. No evidence of any significant interstitial lung disease or airway issues that the CT scan report mentions. Although she did have a small nodular density that will need additional follow-up. On exam she does have some end expiratory wheezing and cough tends to be congested in nature. During the office visit we did do a nebulized treatment with DuoNeb and her breathing did improve. I do believe that she has evidence of chronic bronchitis was probably precipitated by a viral syndrome. Will go ahead and provide her a nebulizer in order for her to do Xopenex twice a day followed by Acapella valve for chest PT. in addition to that. The patient patient course of prednisone and doxycycline to clear any underlying smoldering infection. Right now patient understands that she is immunocompromised while being on the Humira. Will reassess her symptoms when she returns in 6-8 weeks if she continues to be symptomatic then will do allergy testing immunological testing to assess her immune system. [facility] Medical History (Updated 12/09/24 @ 22:46 by Mike Castle MD) Upper airway cough syndrome Chronic bronchitis Reactive airway disease Chronic cough Long-term use of immunosuppressant medication Osteoarthritis of foot, left Osteoarthritis of foot, right Seropositive rheumatoid arthritis Surgical History History of knee joint replacement Social History Household Members: Spouse Housing: Apartment Are you a primary health care marketing specialist to a significant other at home: No Do you presently have visiting nurse or other home services: No 75 years or older and lives alone: No Alcohol intake: never Patient Tobacco Use Status: Former Tobacco user Years Smoked: Quit 1983 e-Cigarette/Vaping Use: Never Used service: No Current occupational status: retired Review of Systems Const Denies chills, Denies daytime sleepiness, Denies fatigue, Denies fever(s), Denies poor appetite, Denies stops breathing during sleep, Denies weakness, Denies weight gain and Denies weight loss Eyes Denies loss of vision ENT Denies dizziness and Denies hearing loss Card Denies chest pain, Denies irregular heart rhythm, Denies claudication, Denies leg edema, Denies lightheadedness, Denies palpitations, Reports dyspnea on exertion and Denies orthopnea Resp Reports chest congestion, Reports cough, Denies hemoptysis, Denies excessive phlegm production and Reports dyspnea on exertion GI Denies abdominal pain, Denies hematochezia, Denies change in bowel habits, Denies nausea and Denies vomiting Musc Reports as per HPI, Reports myalgias, Reports arthralgias, Denies muscle weakness and Denies other Skin/Breast Denies nail changes and Denies rash Neuro Denies Abnormal speech present, Denies dizziness, Denies loss of vision, Denies memory loss and Denies weakness Psych Denies depression and Denies memory loss Endo Denies fatigue and Denies palpitations Elie/Lymph Denies easy bruising Physical Exam Vital Signs: Last Vital Signs Pulse 99 12/07/24 13:25 BP 110/60 12/07/24 13:25 Pulse Ox 97 12/07/24 13:25 Oxygen Delivery Method Room Air 12/07/24 13:25 BMI result Body Mass Index 34.2 Neuro Speech: No Abnormal speech present Assessment & Plan Assessment & Plan (1) Chronic cough: Code(s): R05.3 - Chronic cough Category: Medical (2) Reactive airway disease: Code(s): J45.909 - Unspecified asthma, uncomplicated Category: Medical Qualifiers: Asthma severity: moderate Asthma persistence: persistent Asthma complication type: with acute exacerbation Qualified Code(s): J45.41 - Moderate persistent asthma with (acute) exacerbation (3) Chronic bronchitis: Code(s): J42 - Unspecified chronic bronchitis Category: Medical Qualifiers: Chronic bronchitis type: mixed simple and mucopurulent Qualified Code(s): J41.8 - Mixed simple and mucopurulent chronic bronchitis (4) Upper airway cough syndrome: Code(s): R05.8 - Other specified cough Category: Medical (5) Seropositive rheumatoid arthritis: Comment: ++RF++CCP Onset 02/2012 MTX 04/2012; Enbrel added 04/2013; methotrexate stopped 04/2014 due to elevated lfts .HCQ added 06/2014, 06/2021 - Hydroxychloroquine stopped due to nausea 06/2016: Humira monotherapy effective Code(s): M05.9 - Rheumatoid arthritis with rheumatoid factor, unspecified Category: Medical Plan start nebs with xopenex BID CPT with acapella valve start Doxy Start Prednisone Tessalon pearls as needed nasal steroid spray sinus rinse consider bloodwork repeat CT chest 1 yr from last need to review PFTs F/U 2 months Medications: New levalbuterol HCl 1.25 mg (3 mL) inhalation BID 180 mL 0RF 30 days J44.9 - Chronic obstructive pulmonary disease, unspecified prednisone PO daily; Take 2 tabs daily x 5 days, then 1 tablet daily x 5 days 15 tabs 0RF 10 days doxycycline monohydrate 100 mg PO BID 28 tabs 0RF 14 days benzonatate 200 mg PO BID PRN 60 caps 0RF cough 30 days Coding Level of Care Code New Pt Level 5 (98068) Diagnoses Chronic cough R05.3 Moderate persistent reactive airway disease with acute exacerbation J45.41 Asthma severity: moderate Asthma persistence: persistent Asthma complication type: with acute exacerbation Mixed simple and mucopurulent chronic bronchitis J41.8 Chronic bronchitis type: mixed simple and mucopurulent Upper airway cough syndrome R05.8 Seropositive rheumatoid arthritis M05.9 Time Spent (min) 60
[2024-12-07 13:25] VITALS: BP 110/60; PULSE 99; O2SAT 97; BMI 34.2
--- OUTSIDE RECORDS SUMMARY | 2024-12-07 14:02 | XMS_ITS | Clinical Summary ---
Author Organization [facility] Address [address] [place] [address] Phone Care Team Providers Care Personal Care Worker Name Role Phone Unavailable Primary Care Provider Unavailabl e Allergies Active Allergy Reactions Criticality Noted Date Comments Dwmcvce-Zkgoyibhyinva-Vomnymnd Hives 09/30 Penicillins Hives 09/20/2005 Medications adalimumab (Humira,CF, Pen) 40 mg/0.4 mL pen Inject 0.4 mL (40 mg total) under the skin. 4 Active atorvastatin (LIPITOR) 20 mg tablet Take 1 tablet (20 mg total) by mouth 1 (one) time each day. 4 Active buPROPion XL (WELLBUTRIN XL) 150 mg 24 hr tablet Take 1 tablet (150 mg total) by mouth 2 (two) times a day. 3 Active cholecalciferol (VITAMIN D-3) 25 mcg (1,000 unit) tablet 1 tablet daily Ac tive clonazePAM (KlonoPIN) 0.5 mg tablet Take 1 tablet (0.5 mg total) by mouth. 1 Active amphetamine-dex troamphetamine XR (ADDERALL XR) 20 mg 24 hr capsule Take 1 capsule (20 mg total) by mouth 1 (one) time each day in the morning. 4 Active venlafaxine XR (EFFEXOR-XR) 75 mg 24 hr capsule Take 1 capsule (75 mg total) by mouth 1 (one) time each day in the morning. 4 Active fluticasone-mirna meterol (ADVAIR DISKUS) 250-50 mcg/dose diskus inhaler Inhale 1 puff by mouth 2 (two) times a day. Rinse mouth with water after use to reduce aftertaste and incidence of candidiasis. Do not swallow. 1 each 4 07/27/20 25 Active alendronate (FOSAMAX) 70 mg tablet Take 1 tablet (70 mg total) by mouth every 7 (seven) days. 12 tablet 1 4 01/17/20 25 Active meclizine (ANTIVERT) 12.5 mg tablet Take 1 tablet (12.5 mg total) by mouth 3 (three) times a day if needed for dizziness. 30 tablet 5 08/22/19 26 Active Shama-Tussin DM 10-100 mg/5 mL liquid TAKE 5 ML BY MOUTH EVERY 4 HOURS NEEDED FOR COUGH 240 mL 1 5 Active dextromethorpha n-guaiFENesin (Mucinex DM) 30-600 mg per 12 hr tablet Take 1 tablet by mouth every 12 (twelve) hours. 4 Active Shama-Tussin DM 10-100 mg/5 mL liquid Take 5 mL by mouth every 4 (four) hours if needed. for cough 5 Active Active Problems Problem Noted Date Diagnosed Date Hyperlipidemia 08/22/2023 Atrial tachycardia (CMS/HCC V24) 03/04/2023 Overview (10/21/2023): Last Assessment & Plan: Patient has history of PACs. Her diagnostic cardiac sonographer showed a burst of atrial tachycardia in the past. She was completely asymptomatic. She continues to remain asymptomatic and does not feel any palpitations. In the future if she were to have symptomatic palpitations a low-dose beta-pushpa could be trialed. Her nuclear stress test was completely normal with a normal LVEF. Her blood pressures are normal. She does not require any additional cardiac testing. Coronary artery calcification 03/04/2023 Overview (10/21/2023): Last Assessment & Plan: Patient's nuclear stress test identified moderate coronary artery calcification in the LAD. Patient encouraged to continue with aggressive lipid management. She has been doing well on her present dose of atorvastatin 20 mg once a day. Her last LDL cholesterol was 50. Would recommend continuing with this medication. Patient advised to discuss with her PCP to have this prescription taken over as she does not require ongoing cardiac follow-up for the management of hyperlipidemia. Sinus tachycardia 03/01/2023 Overview (10/21/2023): With occasional PAC History of total knee arthroplasty, right 2018 Overview (10/21/2023): 10/03(Dr. Gagnon) Osteopenia 03/01/2018 Overview (10/21/2023): 03/01 T scores: -2.2 at LS spine and -1.5 at hip 02/2022 23% risk of major osteoporotic fracture 5.3% risk of hip fracture Hepatic steatosis 05/17/2017 Anatomical narrow angle 05/06/2016 Overview (10/21/2023): 04/2016, Dr Kent Primary osteoarthritis of both feet 10/15/2015 Overview (10/21/2023): R first MTP fusion, 04/2021 Prediabetes 04/03/2015 Surgical menopause 10/03/2014 Overview (10/21/2023): Age 29, on hormone replacement for 10 yrs Seropositive rheumatoid arth ritis ([facility]/HCC V24, [facility]/HCC V28) 04/21/2012 Overview (10/21/2023): Onset February 2012, sero-positive. Methotrexate started 04/26; Enbrel added 04/27; methotrexate stopped 04/28 due to elevated lft's. Plaquenil added 06/28(eye exam OK 02/26, 04/29, 10/28, 04/30, 06/30, 12/29,07/01, 12/30, 07/02, 12/31, 07/03,04/03, 10/2020, 03/2021). 2015: Humira in place of Enbrel to try to improve response 02/2021: Hydroxychloroquine stopped due to dysphagia Major depressive disorder, r ecurrent episode, moderate (CMS/HCC V24, CMS/HCC V28) 08/22/2009 Obesity 09/30/2005 Resolved Problems Problem Noted Date Diagnosed Date Resolved Date Night sweats 11/08/2010 07/25/2024 Overview (10/21/2023): Taking hytrin for sweats Malaise and fatigue 09/30/2005 07/25/20 24 Overview (10/21/2023): sleep studies negative for sleep apnea 11/18 mibi negative 07/20 Colonoscopy 12/12/[address] cherie pineda elongated tortuous colon negative exam- repeat in 10 yeasrs Encounters Date Type Department Care Team Description 10/18/2024 8:47 AM EST - 10/18/2024 11:59 PM EST Hospital Encounter CT Scan - [address] [phone] Shortness of breath Discharge Disposition: Home or Self Care 10/18/2024 Telephone Adult Medicine [address] [phone] Jaqueline Skinner MD Results (Cat Scan results) 10/10/2024 Telephone Adult [address] [phone] Jaqueline Skinner MD Referral (Ambulatory / Allergy & Immunology) 10/08/2024 Telephone Adult Medicine [facility] [address] [place] [phone] Jaqueline Skinner MD 10/02/2024 Telephone Adult [address] [phone] Jaqueline Skinner MD Results (Pt has no access to MyChart. Pls call ) 10/01/2024 Telephone Adult [address] [phone] Jaqueline Skinner MD provider callback 09/26/2024 Telephone Adult [address] [phone] Jaqueline Skinner MD Referral 09/25/2024 10:00 AM EST Ancillary Procedure Pulmonolgy - [facility] [address] [facility] [address] [place] [phone] Jacqueline Espinosa Chronic cough; Former smoker from Last 3 Months Surgical History Surgery Date Site/Laterality Comments HYSTERECTOMY PROCEDURE: HISTORICAL TOTAL HYSTERECTOMY WITH BSO; COMMENT: at age 27- complete hysterectomy CHOLECYSTECTOMY PROCEDURE: HISTORICAL CHOLECYSTECTOMY; COMMENT: in the KNEE ARTHROSCOPY W/ DEBRIDEMENT PROCEDURE: LA ARTHRS KNEE DEBRIDEMENT/SHAVING ARTCLR CRTLG; COMMENT: left ANKLE SURGERY PROCEDURE: HISTORICAL ANKLE SURGERY; COMMENT: right for a bone chip APPENDECTOMY PROCEDURE: HISTORICAL APPENDECTOMY COLONOSCOPY PROCEDURE: HISTORICAL COLONOSCOPY; COMMENT: Dr Pineda TOTAL KNEE ARTHROPLASTY 10/09/2018 Right PROCEDURE: HISTORICAL TOTAL KNEE REPLACE; COMMENT: Dr. Gagnon Medical History Medical History Date Comments Depressive disorder, not els ewhere classified 09/21/2005 DX:Depressive disorder, not elsewhere classified Major depressive disorder, r ecurrent episode, moderate (CMS/HCC V24, CMS/HCC V28) 08/22/2009 DX:Major depressive disorder , recurrent episode, moderate ([facility]) Obesity, unspecified 09/30/2005 DX:Obesity, unspecified Other chest pain 08/03/2006 DX:Other chest pain Rheumatoid arthritis(714.0) 04/21/2012 DX:R heumatoid arthritis(714.0) Family History Medical History Relation Name Comments Cervical cancer Aunt Diabetes Brother Thyroid disease Daughter 1 Coronary artery disease Daughter 2 Arthritis Father Coronary artery disease Mother Heart attack Mother 61 Cervical cancer Sister 1 Hyperlipidemia Sister 1 Arthritis Sister 2 hx RA No Known Problems Sister 3 Dementia Sister 4 Other: POTS Son Breast cancer Neg Hx Relation Name Status Comments Aunt Brother Alive 1 Daughter 1 Alive Daughter 2 Alive Father (Age 83) lung cance r Mother [place], Asthma Sister 1 4 : sister with [place] and stent placement age 52 [ from CAD] Sister 2 Sister 3 Sister 4 Alive Son Alive Social History Tobacco Use Types Packs/Day Years Used Date Smoking Tobacco: Former Cigarettes Q uit: 08/15/1983 Smokeless Tobacco: Never Tobacco Cessation:Counseling Given: Not Answered Alcohol Use Standard Drinks/Week Comments Not Currently 0 (1 standard drink = 0.6 oz pur e alcohol) Comments No Sex and Gender Information Value Date Recorded Sex Assigned at Not on file Legal Sex Female 4:12 PM EST Gender Identity Not on file Sexual Orientation Not on file Obstetrics History Para Term AB IAB SAB Ectopic Multiple Livin g Live Births 3 Last Filed Vital Signs Vital Sign Reading Time Taken Comments Blood Pressure 111/63 08/22/2024 10:00 AM EST Pulse 96 08/22/2024 10:00 AM EST Temperature 36.2 ??C (97.2 ??F) 08/22/2024 1 0:00 AM EST Respiratory Rate - - Oxygen Saturation 98% 08/14/2024 9:54 AM EST Inhaled Oxygen Concentration - - Weight 86.1 kg (189 lb 12.8 oz) 025 10:00 AM EST Height 160 cm (5' 3 ) 08/22/2024 10:00 AM EST Body Mass Index 33.62 08/22/2024 10:00 AM EST Plan of Treatment Health Maintenance Due Date Last Done Comments Zoster Vaccines (1 of 2) 02/04/2004 Colorectal Cancer Screening: Stool Based Tests (FOBT/FIT) 07/14/2022 11/03/2020 Depression Screening 07/14/2022 Falls Risk Assessment 07/14/2022 Medicare Annual Wellness Visit 07/14/2022 Social Influencers of Health Screening 07/14/2022 COVID-19 Vaccine ( season) 2024 07/06/2021, 11/22/2020, 11/01/2020 Hypertension/CHF/CAD Annual BMP Blood Test 02/19/2025 02/20/2024 Breast Cancer Screening 06/21/2026 06/21/20 24, 10/25/2021, 10/24/2021, Additional history exists Cholesterol Screening (Lipid Panel) 08/22/2028 08/22/2023 RSV Immunization Adult Patients (1 - 1-dose 75+ series) 2029 DTaP,Tdap,and Td Vaccines (4 - Td or Tdap) 06/19/2030 06/19/2020, 01/27/2009, 11/15/2003 Osteoporosis Screening (Bone Density Screening) 03/08/2032 03/08/2022, 03/01/2018 Hepatitis C Screening Completed 04/07/2012 Pneumococcal Vaccine: 50+ Years Completed 09/11/2019, 03/13/2015, 04/21/2012 Influenza Vaccine Completed 06/13/2024, , 07/06/2021, Additional history exists HIB Vaccines Aged Out No longer eligi ble based on patient's age to complete this topic HPV Vaccines Aged Out No longer eligi ble based on patient's age to complete this topic Hepatitis A Vaccines Aged Out No long er eligible based on patient's age to complete this topic Hepatitis B Vaccines Aged Out No long er eligible based on patient's age to complete this topic IPV Vaccines Aged Out No longer eligi ble based on patient's age to complete this topic MMR Vaccines Aged Out No longer eligi ble based on patient's age to complete this topic Meningococcal ACWY Vaccine Aged Out N o longer eligible based on patient's age to complete this topic Meningococcal B Vaccine Aged Out No l onger eligible based on patient's age to complete this topic RSV Immunization Patients Under 20 months Aged Out No longer eligible based on patient's age to complete this topic Varicella Vaccines Aged Out No longer eligible based on patient's age to complete this topic Procedures Procedure Name Priority Date/Time Associated Diagnosis Comments CT CHEST WO CONTRAST Routine 10/18/2024 8:54 AM EST Shortness of breath PULMONARY FUNCTION TESTING Routine 09/25/2024 10:52 AM EST Chronic cough Former smoker MG MAMMO DIGITAL SCREENING W COOPER BILAT Routine 06/21/2024 2:16 PM EST Visit for screening mammogram LIPID PANEL Routine 08/22/2023 DXA BONE DENSITY STUDY 1+ SITS AXIAL SKEL Routine 03/08/2022 10:54 AM EDT Other specified disorders of bone density and structure, unspecified site HM STOOL BASED TEST Routine 11/03/2020 HEPATITIS C SCREENING Routine 04/07/2012 from Last 3 Months or Most Recently Relevant to Health Maintenance Results * CT Chest wo Contrast (10/18/2024 8:54 AM EST) Anatomical Region Laterality Modality Body Computed Tomogra phy 10/18/2024 9:20 AM EST Impressions 10/18/2024 9:42 AM EST 1. ??No acute cardiopulmonary process. 2. ??Few scattered pulmonary nodules measuring up to 0.2 cm. Multiple indeterminate pulmonary nodules. The largest one is solid and measures 2 mm. For multiple nodules <6 mm in a patient of unknown risk, with the largest one being solid, for a low-risk patient, recommend no follow-up. For a high-risk patient, CT at 12 months is optional with stronger consideration if there is suspicious nodule morphology and/or upper lobe location. A non-calcified 2 mm solid nodule is indeterminate. Swapnil H, et al. Guidelines for Management of Incidental Pulmonary Nodules Detected on CT Images: From the Fleischner Society 2017. Radiology. 2017 Brian;284(1):228- 243. -------- FINAL REPORT -------- Dictated By: Cherri Walton Dictated Date: 10/18/2024 09:20 ET Assigned Physician: Cherri Walton Reviewed and Electronically Signed By: Cherri Walotn Signed Date: 10/18/2024 09:42 ET Workstation ID: [id number] Transcribed By: Self Edit Transcribed Date: 10/18/2024 09:20 ET Narrative 10/18/2024 9:[address] CHEST WO CONTRAST TECHNIQUE: Multidetector CT of the chest was performed without intravenous contrast. COMPARISON: Chest radiograph on July 25, 2024 HISTORY: Cough, persistent FINDINGS: Lungs: Central airways are clear. ??No focal consolidation. ??Scattered pulmonary nodules, measuring up to 2 mm in size, for example right middle lobe (2:141), left upper lobe (2:97), subpleural right middle lobe (2:172). Pleura: No pleural effusion or pneumothorax. Mediastinum: No thyroid nodules. Heart is normal in size. ??No pericardial effusion. ??Moderate coronary artery calcifications. Lymph Nodes: No lymphadenopathy. Upper Abdomen: Status post cholecystectomy. ??Fatty infiltration of the included pancreas. Chest Wall: Unremarkable. Bones: No acute or suspicious bone lesions. Procedure Note Cherri Walton MD - 10/18/2024 CT CHEST WO CONTRAST TECHNIQUE: Multidetector CT of the chest was performed without intravenouscontrast. COMPARISON: Chest radiograph on July 25, 2024 HISTORY: Cough, persistent FINDINGS: Lungs: Central airways are clear. No focal consolidation. Scatteredpulmonary nodules, measuring up to 2 mm in size, for example right middlelobe (2:141), left upper lobe (2:97), subpleural right middle lobe(2:172). Pleura: No pleural effusion or pneumothorax. Mediastinum: No thyroid nodules. Heart is normal in size. No pericardialeffusion. Moderate coronary artery calcifications. Lymph Nodes: No lymphadenopathy. Upper Abdomen: Status post cholecystectomy. Fatty infiltration of theincluded pancreas. Chest Wall: Unremarkable. Bones: No acute or suspicious bone lesions. IMPRESSION: 1. No acute cardiopulmonary process. 2. Few scattered pulmonary nodules measuring up to 0.2 cm. Multiple indeterminate pulmonary nodules. The largest one is solid andmeasures 2 mm. For multiple nodules <6 mm in a patient of unknown risk,with the largest one being solid, for a low-risk patient, recommend nofollow-up. For a high-risk patient, CT at 12 months is optional withstronger consideration if there is suspicious nodule morphology and/orupper lobe location. A non-calcified 2 mm solid nodule is indeterminate. Swapnil H, et al. Guidelines for Management of Incidental PulmonaryNodules Detected on CT Images: From the Fleischner Society 2017.Radiology. 2017 Brian;284(1):228- 243. -------- FINAL REPORT -------- Dictated By: Cherri Walton Dictated Date: 10/18/2024 09:20 ET Assigned Physician: Cherri Walton Reviewed and Electronically Signed By: Cherri Walton Signed Date: 10/18/2024 09:42 ET Workstation ID: [id number] Transcribed By: Self Edit Transcribed Date: 10/18/2024 09:20 ET Jaqueline Harrington MD IMG CT PROCEDURES Final Result * Pulmonary function testing: Bronchial Challenge with Methacholine, Plethysmography, Carbon MonoxideDiffusing Capacity (09/25/2024 10:52 AM EST) Impressions Maranda Salgado MD - 09/25/2024 10:52 AM EST DATE OF SERVICE: 09/25/24 SPIROMETRY: FEV1 is 94 % predicted and an FVC ??is 79 % predicted. The FEV1/FVC ratio is 118% of normal, no response to bronchodilators noted. LUNG VOLUMES: Total lung capacity (TLC): 84% predicted. Residual volume (RV): 87% predicted RV/TLC ratio is 102% of normal DIFFUSION CAPACITY: DLCO 76% predicted. DlCO/VA 82% of predicted COMPARISONS: INTERPRETATION: This pulmonary function test shows normal spirometry and diffusion. ??There is no evidence of lung disease based on this PFT ??Maranda Salgado MD ?? Avni LOOMIS PFT ORDERABLES Final Result * MG Mammo Digital Screening w Cooper bilat (06/21/2024 2:16 PM EST) Anatomical Region Laterality Modality Breast Bilateral Mammography 06/21/2024 3:48 PM EST Impressions 06/21/2024 3:57 PM EST No mammographic evidence of malignancy. ?? No suspicious interval change. A negative mammogram in the presence of a clinically suspicious palpable abnormality does not preclude the possibility of malignancy or alter the indications for biopsy. ASSESSMENT: ?? BI-RADS 1: NEGATIVE RECOMMENDATION(S): 1: Routine screening mammogram BILATERAL in 1 year. -------- FINAL REPORT -------- Dictated By: Kodi Beal Dictated Date: 06/21/2024 15:48 ET Assigned Physician: Kodi Beal Reviewed and Electronically Signed By: Kodi Beal Signed Date: 06/21/2024 15:57 ET Workstation ID: [id number] Transcribed By: Self Edit Transcribed Date: 06/21/2024 15:48 ET Narrative 06/21/2024 3:57 PM EST EXAM: ??SCREENING MAMMOGRAPHY, BILATERAL HISTORY: ??SCREENING. ??No additional history. COMPARISON: ??10/24/2021, 03/18/2020 TECHNIQUE: Synthesized CC and MLO projections of each breast. ??Tomosynthesis of each breast in the CC and MLO projections. ADDITIONAL IMAGING: None Computer-aided detection was employed with the iCAD ??profound AI 3-D. TISSUE DENSITY: There are scattered areas of fibroglandular density. (BI-RADS category B) FINDINGS: RIGHT BREAST: No suspicious mass. No suspicious calcification. No distortion. ?? No additional suspicious right breast findings LEFT BREAST: No suspicious mass. No suspicious calcification. No distortion. ?? No additional suspicious left breast findings Procedure Note Kodi Beal MD - 06/21/2024 EXAM: SCREENING MAMMOGRAPHY, BILATERAL HISTORY: SCREENING. No additional history. COMPARISON: 10/24/2021, 03/18/2020 TECHNIQUE: Synthesized CC and MLO projections of each breast.Tomosynthesis of each breast in the CC and MLO projections. ADDITIONAL IMAGING: None Computer-aided detection was employed with the iCAD profound AI 3-D. TISSUE DENSITY: There are scattered areas of fibroglandular density.(BI-RADS category B) FINDINGS: RIGHT BREAST: No suspicious mass. No suspicious calcification. No distortion. Noadditional suspicious right breast findings LEFT BREAST: No suspicious mass. No suspicious calcification. No distortion. Noadditional suspicious left breast findings IMPRESSION: No mammographic evidence of malignancy. No suspicious interval change. A negative mammogram in the presence of a clinically suspicious palpableabnormality does not preclude the possibility of malignancy or alter theindications for biopsy. ASSESSMENT: BI-RADS 1: NEGATIVE RECOMMENDATION(S): 1: Routine screening mammogram BILATERAL in 1 year. -------- FINAL REPORT -------- Dictated By: Kodi Beal Dictated Date: 06/21/2024 15:48 ET Assigned Physician: Kodi Beal Reviewed and Electronically Signed By: Kodi Beal Signed Date: 06/21/2024 15:57 ET Workstation ID: [id number] Transcribed By: Self Edit Transcribed Date: 06/21/2024 15:48 ET Jaqueline Harrington MD IMG BI PROCEDURES Final Result * Lipid panel (08/22/2023) LDL/HDL Ratio 2 Triglycerides 116 mg/dL Cholesterol 159 mg/dL HDL 86 mg/dL LDL Cholesterol 50 mg/dL Blood Venous blood specimen / Unknown Historical Provider LAB BLOOD ORDERABLES Evelyn l Result * DXA BONE DENSITY STUDY 1+ SITS AXIAL SKEL (03/08/2022 10:54 AM EDT) Anatomical Region Laterality Modality Bone Densitometr y 01/12/2022 2:04 PM EDT Narrative 03/08/2022 5:17 PM EDT BONE DENSITY SCAN (DEXA): FINDINGS: Lumbar Spine T-score is -2.1. ?? (SD relative to 20-29 y/o adult) Z-score is -0.2. ??(SD relative to age matched peers) This is considered osteopenia by WHO criteria. Left Hip T-score is -2.2. Z-score is -0.5. This is considered osteopenia by WHO criteria. Comparison exam(s): 03/01/2018. ??3.2% loss of bone mineral density in the left hip, statistically significant at the 95% confidence level. ??No statistically significant change in lumbar spine bone mineral density. ?? Lateral survey view of the thoracolumbar spine shows no significant compression deformities. IMPRESSION: IMPRESSION: Osteopenia by WHO criteria. This patient has a 23% risk of major osteoporotic fracture and a 5.3% risk of hip fracture over the next 10 years. (World Health Organization Fracture Risk Assessment) [facility] Department of Internal Medicine recommends using National Osteoporosis Foundation (NOF) guidelines in treatment decisions related to osteoporosis. NOF guidelines suggest considering treatment for postmenopausal women and men aged 50 or older presenting with the following: History of hip or vertebral fracture. T-score = -2.5 (DXA) at the femoral neck, total hip, or spine, after appropriate evaluation to exclude secondary causes. Low bone mass (T-score between -1.0 and -2.5 at the femoral neck or spine) AND a 10-year probability of a hip fracture = 3% OR a 10-year probability of a major osteoporosis-related fracture = 20% based on the [place]-adapted WHO algorithm Please note that all treatment decisions require clinical judgment and consideration of individual patient factors, including patient preferences, co-morbidities, previous drug use, risk factors not captured in the FRAX model (e.g., frailty, falls, vitamin D deficiency, increased bone turnover, interval significant decline in bone density) and possible under- or over-estimation of fracture risk by FRAX. Optional alternative screening schedule based on madiha Tellez., [facility] September 02, 2011 for patients with osteopenia (based on hip BMD T-score) is as follows: * ??advanced osteopenia (T scores -2.00 to -2.49), BMD testing every year * ??moderate osteopenia (T scores -1.50 to -1.99), BMD testing every 5 years mild osteopenia or normal BMD (T scores -1.50 and higher), BMD testing every 15 years Procedure Note Kamla Correia MD - 08/03/2022 BONE DENSITY SCAN (DEXA): FINDINGS: Lumbar Spine T-score is -2.1. (SD relative to 20-29 y/o adult) Z-score is -0.2. (SD relative to age matched peers) This is considered osteopenia by WHO criteria. Left Hip T-score is -2.2. Z-score is -0.5. This is considered osteopenia by WHO criteria. Comparison exam(s): 03/01/2018. 3.2% loss of bone mineral density in theleft hip, statistically significant at the 95% confidence level. No statisticallysignificant change in lumbar spine bone mineral density. Lateral survey view of the thoracolumbar spine shows no significantcompression deformities. IMPRESSION: IMPRESSION: Osteopenia by WHO criteria. This patient has a 23% risk of majorosteoporotic fracture and a 5.3% risk of hip fracture over the next 10 years. (World HealthOrganization Fracture Risk Assessment) [facility] Department of Internal Medicine recommendsusing National Osteoporosis Foundation (NOF) guidelines in treatment decisions related toosteoporosis. NOF guidelines suggest considering treatment for postmenopausal women and menaged 50 or older presenting with the following: History of hip or vertebral fracture. T-score = -2.5 (DXA) at the femoral neck, total hip, or spine, afterappropriate evaluation to exclude secondary causes. Low bone mass (T-score between -1.0 and -2.5 at the femoral neck or spine)AND a 10-year probability of a hip fracture = 3% OR a 10-year probability of a majorosteoporosis-related fracture = 20% based on the [place]-adapted WHO algorithm Please note that all treatment decisions require clinical judgment andconsideration of individual patient factors, including patient preferences, co- morbidities,previous drug use, risk factors not captured in the FRAX model (e.g., frailty, falls, vitaminD deficiency, increased bone turnover, interval significant decline in bone density) andpossible under- or over-estimation of fracture risk by FRAX. Optional alternative screening schedule based on arya Tellez al., NEJMJanuary 2011 for patients with osteopenia (based on hip BMD T-score) is as follows: * advanced osteopenia (T scores -2.00 to -2.49), BMD testing every year * moderate osteopenia (T scores -1.50 to -1.99), BMD testing every 5years mild osteopenia or normal BMD (T scores -1.50 and higher), BMD testingevery 15 years Nancy LOOMIS IM DXA PROCEDURES Final R esult * Stool Based Tests (FOBT/FIT) (11/03/2020) Pathologist [facility] Colorectal Cancer Screening: Stool Based Tests negative Historical Provider HEALTH MAINTENANCE Final Result * Hepatitis C Screening (04/07/2012) Hepatitis C Screening negative us Historical Provider MD HEALTH MAINTENANCE Final Result from Last 3 Months or Most Recently Relevant to Health Maintenance Insurance BLUE [place] - [place] MEDIC[place]AGE
== END 2024-12-07 14:20 | disposition home or self-care (01) ==
LOC: HO.HPS 13:19
PROVIDERS: PCP Internal Medicine; Visit Provider Hospitalist
DX: J45.41 Moderate persistent asthma with (acute) exacerbation (principal); M05.9 Rheumatoid arthritis with rheumatoid factor, unspecified
CPT/HCPCS: 99205

== ENCOUNTER → 2024-12-07 13:18 | Outpatient (BNVA) | payer MEDICARE, SELFPAY | PROVIDERS: PCP Internal Medicine; Visit Provider Hospitalist | DX: J41.8 Mixed simple and mucopurulent chronic bronchitis (principal); J45.41 Moderate persistent asthma with (acute) exacerbation; R05.3 Chronic cough; R05.8 Other specified cough; M05.9 Rheumatoid arthritis with rheumatoid factor, unspecified | CPT/HCPCS: 99202 ==

== ENCOUNTER 2025-02-07 13:47 | Outpatient (AMB) | payer MEDICARE, SELFPAY ==
[2025-02-07 13:52] VITALS: BP 136/68; PULSE 107; O2SAT 97; BMI 35.1
--- NOTE | 2025-02-07 13:52 | A.OFFVIS_ITS ---
Vital Signs 02/07/25 13:52 Height 5 ft 3 in Weight 198 lb 6.656 oz BMI 35.1 BP 136/68 Blood Pressure Location Lt brachial Position Sitting Pulse 107 H Pulse Oximetry (%) 97 Oxygen Delivery Method Room Air Intake Visit Reasons: cough Curing Press Operator Required: No Allergies caffeine (From Excedrin Migraine) Allergy (Intermediate, Verified 02/07/25 13:55) Hives Penicillins Allergy (Intermediate, Verified 02/07/25 13:55) Hives dust Allergy (Mild, Uncoded 12/07/24 13:31) Unknown HPI Comments Details: The patient is a 70 year woman with known history of rheumatoid arthritis currently on Humira who apparently presents with a chronic cough. The patient was in her usual state health until April when she was sick with a URI and chest congestion. The patient was evaluated in urgent care and she was treated and released. After that she started developing a cough. The cough tends to be moderate severe. Typically worse at nighttime. The cough can sometimes be productive bringing up some thick white phlegm. She has been evaluated multiple times for this including taking a course of prednisone and also a rescue inhaler in addition to that had been given a course of antibiotics. She had not seen any significant improvement so therefore she had further testing including PFTs that I do not have right now and she also underwent a CT scan of the chest which I did review the report. No evidence of any significant interstitial lung disease or airway issues that the CT scan report mentions. Although she did hav e a small nodular density that will need additional follow-up. On exam she does have some end expiratory wheezing and cough tends to be congested in nature. During the office visit we did do a nebulized treatment with DuoNeb and her breathing did improve. I do believe that she has evidence of chronic bronchitis was probably precipitated by a viral syndrome. Will go ahead and provide her a nebulizer in order for her to do Xopenex twice a day followed by Acapella valve for chest PT. in addition to that. The patient patient course of prednisone and doxycycline to clear any underlying smoldering infection. Right now patient understands that she is immunocompromised while being on the Humira. Will reassess her symptoms when she returns in 6-8 weeks if she continues to be symptomatic then will do allergy testing immunological testing to assess her immune system. 02/07/2025 the patient is here for a pulmonary follow-up visit. Overall the patient has been feeling better. She then completed antibiotics and the prednisone at that time. Although her arthritis has been more significantly active and therefore she has been on some prednisone for that. She has been retaining some fluid and also has had elevated blood pressure. I explained to her that it is likely from all the steroids. She will talk to her panelboard assembler regarding cutting down. In the meantime she continues in the [facility]. We did review the CT scan of the size that she had back in October 2024 at [facility]. The patient does have underlying pulmonary nodules subcentimeter in size. Should get a repeat CAT scan sometime in the spring. In addition to that she had PFTs which are relatively normal except for decrease in the DLCO. She did get a nebulizer and she has been using it. She did not get the Acapella valve for CPT I will request for at this time. The patient will return in the fall. if she is doing well though she can always come in in spring after her CAT scan. [facility] Medical History (Updated 02/07/25 @ 23:32 by Mike Castle MD) Pulmonary nodules Upper airway cough syndrome Chronic bronchitis Reactive airway disease Chronic cough Long-term use of immunosuppressant medication Osteoarthritis of foot, left Osteoarthritis of foot, right Seropositive rheumatoid arthritis Surgical History History of knee joint replacement Social History Household Members: Spouse Housing: Apartment Are you a primary customer care specialist to a significant other at home: No Do you presently have visiting nurse or other home services: No 75 years or older and lives alone: No Alcohol intake: never Patient Tobacco Use Status: Former Tobacco user Years Smoked: Quit 1983 e-Cigarette/Vaping Use: Never Used service: No Current occupational status: retired Review of Systems Const Denies chills, Denies daytime sleepiness, Denies fatigue, Denies fever(s), Denies poor appetite, Denies stops breathing during sleep, Denies weakness, Denies weight gain and Denies weight loss Eyes Denies loss of vision ENT Denies dizziness and Denies hearing loss Card Denies chest pain, Denies irregular heart rhythm, Denies claudication, Denies leg edema, Denies lightheadedness, Denies palpitations and Denies orthopnea Resp Reports cough, Denies hemoptysis and Denies excessive phlegm production GI Denies abdominal pain, Denies hematochezia, Denies change in bowel habits, Denies nausea and Denies vomiting Musc Reports as per HPI, Reports myalgias, Reports arthralgias, Denies muscle weakness and Denies other Skin/Breast Denies nail changes and Denies rash Neuro Denies Abnormal speech present, Denies dizziness, Denies loss of vision, Denies memory loss and Denies weakness Psych Denies depression and Denies memory loss Endo Denies fatigue and Denies palpitations Elie/Lymph Denies easy bruising Physical Exam Vital Signs: Last Vital Signs Pulse 107 H 02/07/25 13:52 BP 136/68 02/07/25 13:52 Pulse Ox 97 02/07/25 13:52 Oxygen Delivery Method Room Air 02/07/25 13:52 BMI result Body Mass Index 35.1 Const General: cooperative, healthy appearing and comfortable Orientation/consciousness: patient oriented x3 Limitations: no limitations HEENT Head: Yes normocephalic and Yes atraumatic Mouth: moist mucous membranes Neck Neck: Yes supple Chest Chest palpation & inspection: normal inspection of the chest Resp Effort & Inspection: normal respiratory effort and able to speak in complete sentences Auscultation: clear to auscultation bilaterally Cardio Rate: regular rate GI Palpation (GI): Soft to palpation Skin General skin exam: dry skin Neuro General: patient oriented x3 Speech: No Abnormal speech present Extrem General: No clubbing and No cyanosis Assessment & Plan Assessment & Plan (1) Chronic cough: Code(s): R05.3 - Chronic cough Category: Medical (2) Reactive airway disease: Code(s): J45.909 - Unspecified asthma, uncomplicated Category: Medical Qualifiers: Asthma complication type: with acute exacerbation Asthma persistence: persistent Asthma severity: moderate Qualified Code(s): J45.41 - Moderate persistent asthma with (acute) exacerbation (3) Chronic bronchitis: Code(s): J42 - Unspecified chronic bronchitis Category: Medical Qualifiers: Chronic bronchitis type: mixed simple and mucopurulent Qualified Code(s): J41.8 - Mixed simple and mucopurulent chronic bronchitis (4) Upper airway cough syndrome: Code(s): R05.8 - Other specified cough Category: Medical (5) Seropositive rheumatoid arthritis: Comment: ++RF++CCP Onset 02/2012 MTX 04/2012; Enbrel added 04/2013; methotrexate stopped 04/2014 due to elevated lfts .HCQ added 06/2014, 06/2021 - Hydroxychloroquine stopped due to nausea 06/2016: Humira monotherapy effective Code(s): M05.9 - Rheumatoid arthritis with rheumatoid factor, unspecified Category: Medical (6) Pulmonary nodules: Code(s): R91.8 - Other nonspecific abnormal finding of lung field Category: Medical Plan nebs with xopenex BID CPT with acapella valve Tessalon pearls as needed nasal steroid spray sinus rinse repeat CT chest 11/2025 F/U 4-6 months Orders: Orders CT chest wo IV con 11/13/25 R91.8 - Other nonspecific abnormal finding of lung field Coding Level of Care Code Est Pt Level 4 (44178) Diagnoses Chronic cough R05.3 Moderate persistent reactive airway disease with acute exacerbation J45.41 Asthma complication type: with acute exacerbation Asthma persistence: persistent Asthma severity: moderate Mixed simple and mucopurulent chronic bronchitis J41.8 Chronic bronchitis type: mixed simple and mucopurulent Upper airway cough syndrome R05.8 Seropositive rheumatoid arthritis M05.9 Pulmonary nodules R91.8 Time Spent (min) 17
--- OUTSIDE RECORDS SUMMARY | 2025-02-07 16:38 | XMS_ITS | Clinical Summary ---
Author Organization [facility] Address [address] [place] [address] Phone Care Team Providers Care Wheat Washer Name Role Phone Unavailable Primary Care Provider Unavailabl e Allergies Active Allergy Reactions Criticality Noted Date Comments Hszivba-Qshrtcxlumkcn-Ogxommwc Hives 09/30 Penicillins Hives 09/20/2005 Medications adalimumab [...] of candidiasis. Do not swallow. 1 each 11 4 07/27/20 25 Active alendronate (FOSAMAX) 70 mg tablet Take 1 tablet (70 mg total) by mouth every 7 (seven) days. 12 tablet 1 4 Active meclizine (ANTIVERT) 12.5 mg tablet Take [...] Plan: Patient has history of PACs. Her compliance monitor showed a burst of atrial tachycardia in [...] for 10 yrs Seropositive rheumatoid arth ritis ([facility] V24, [facility] V28) 04/21/2012 Overview (10/21/2023): Onset February 2012, [...] colon negative exam- repeat in 10 yeasrs Surgical History Surgery Date Site/Laterality Comments HYSTERECTOMY PROCEDURE: HISTORICAL TOTAL HYSTERECTOMY WITH BSO; COMMENT: at age 27- complete hysterectomy CHOLECYSTECTOMY PROCEDURE: HISTORICAL CHOLECYSTECTOMY; COMMENT: in the KNEE ARTHROSCOPY W/ DEBRIDEMENT PROCEDURE: UT ARTHRS KNEE DEBRIDEMENT/SHAVING ARTCLR CRTLG; COMMENT: left [...] DX:Major depressive disorder , recurrent episode, moderate (HCC) Obesity, unspecified 09/30/2005 DX:Obesity, unspecified Other chest [...] Father (Age 83) lung cance r Mother IA, Asthma Sister 1 4 : sister with IA and stent placement age 52 [ from [...] 96 08/22/2024 10:00 AM EST Temperature 36.2 C (97.2 F) 08/22/2024 10:00 AM EST Respiratory Rate - - Oxygen Saturation 98% 08/14/2024 9:54 AM EST Inhaled Oxygen Concentration - - Weight 86.1 kg (189 lb 12.8 oz) 025 10:00 AM EST Height 160 cm (5' 3 ) 08/22/2024 10:00 AM EST Body Mass Index 33.62 08/22/2024 10:00 AM EST Plan of Treatment Health Maintenance Due Date Last Done Comments Hepatitis A Vaccines (1 of 2 - Risk 2-dose series) 1973 Zoster Vaccines (1 of 2) 02/04/2004 Hepatitis B Vaccines (1 of 3 - Risk 3-dose series) 2014 RSV Immunization Adult Patients (1 - Risk 60-74 years 1-dose series) 2014 Colorectal Cancer Screening: Stool Based Tests (FOBT/FIT) 07/14/2022 11/03/2020 Depression Screening 07/14/2022 Falls Risk Assessment 07/14/2022 Medicare Annual Wellness Visit 07/14/2022 Social Influencers of Health Screening 07/14/2022 COVID-19 Vaccine ( season) 2024 07/06/2021, 11/22/2020, 11/01/2020 Hypertension/CHF/CAD Annual BMP Blood Test 02/19/2025 02/20/2024 Breast Cancer Screening 06/21/2026 06/21/20, 10/25/2021, 10/24/2021, Additional history exists Cholesterol Screening (Lipid Panel) 08/22/2028 08/22/2023 DTaP,Tdap,and Td Vaccines (4 - Td or [...] Procedure Name Priority Date/Time Associated Diagnosis Comments MG MAMMO DIGITAL SCREENING W COOPER BILAT Routine 06/21/2024 2:16 PM EST Visit for screening mammogram LIPID PANEL Routine 08/22/2023 DXA BONE DENSITY STUDY 1+ SITS AXIAL SKEL Routine 03/08/2022 10:54 AM EDT Other specified disorders of bone density and structure, unspecified site STOOL BASED TEST Routine 11/03/2020 HEPATITIS C SCREENING Routine 04/07/2012 from Last 3 Months or Most Recently Relevant to Health Maintenance Results * MG Mammo Digital Screening w Cooper bilat (06/21/2024 2:16 PM EST) Anatomical Region Laterality Modality Breast Bilateral Mammography 06/21/2024 3:48 PM EST Impressions 06/21/2024 3:57 PM EST No mammographic evidence of malignancy. No suspicious interval change. A negative mammogram in the presence of a clinically suspicious palpable abnormality does not preclude the possibility of malignancy or alter the indications for biopsy. ASSESSMENT: BI-RADS 1: NEGATIVE RECOMMENDATION(S): 1: Routine screening mammogram BILATERAL in 1 year. -------- FINAL REPORT -------- Dictated By: Kodi Beal Dictated Date: 06/21/2024 15:48 ET Assigned Physician: Kodi Beal Reviewed and Electronically Signed By: Kodi Beal Signed Date: 06/21/2024 15:57 ET Workstation ID: [id number] Transcribed By: Self Edit Transcribed Date: 06/21/2024 15:48 ET Narrative 06/21/2024 3:57 PM EST EXAM: SCREENING MAMMOGRAPHY, BILATERAL HISTORY: SCREENING. No additional history. COMPARISON: 10/24/2021, 03/18/2020 TECHNIQUE: Synthesized CC and MLO projections of each breast. Tomosynthesis of each breast in the CC and MLO projections. ADDITIONAL IMAGING: None Computer-aided detection was employed with the [employer] AI 3-D. TISSUE DENSITY: There are scattered areas of fibroglandular density. (BI-RADS category B) FINDINGS: RIGHT BREAST: No suspicious mass. No suspicious calcification. No distortion. No additional suspicious right breast findings LEFT BREAST: No suspicious mass. No suspicious calcification. No distortion. No additional suspicious left breast findings Procedure Note Kodi Beal MD - 06/21/2024 EXAM: SCREENING MAMMOGRAPHY, BILATERAL HISTORY: SCREENING. No additional history. COMPARISON: 10/24/2021, 03/18/2020 TECHNIQUE: Synthesized CC and MLO projections of each breast.Tomosynthesis of each breast in the CC and MLO projections. ADDITIONAL IMAGING: None Computer-aided detection was employed with the [employer] AI 3-D. TISSUE DENSITY: There are scattered [...] Signed Date: 06/21/2024 15:57 ET Workstation ID: [id number] Transcribed By: Self Edit Transcribed Date: 06/21/2024 [...] 3.2% loss of bone mineral density in the left hip, statistically significant at the 95% confidence level. No statistically significant change in lumbar spine bone mineral density. Lateral survey view of the thoracolumbar spine shows no significant compression deformities. IMPRESSION: IMPRESSION: Osteopenia by WHO criteria. This patient has a 23% risk of major osteoporotic fracture and a 5.3% risk of hip fracture over the next 10 years. (World Health Organization Fracture Risk Assessment) The [employer] Department of Internal Medicine recommends using National [...] alternative screening schedule based on madiha Tellez., [facility] September 02, 2011 for patients with osteopenia [...] years. (World HealthOrganization Fracture Risk Assessment) The [employer] Department of Internal Medicine recommendsusing National Osteoporosis [...] alternative screening schedule based on madiha Tellez., NEJMJanuary 2011 for patients with osteopenia (based on hip BMD T-score) is as follows: * advanced osteopenia (T scores -2.00 to -2.49), BMD testing every year * moderate osteopenia (T scores -1.50 to -1.99), BMD testing every 5years mild osteopenia or normal BMD (T scores -1.50 and higher), BMD testingevery 15 years us Nancy LOOMIS IMG DXA PROCEDURES Final R esult * Stool Based Tests (FOBT/FIT) (11/03/2020) [facility] Colorectal Cancer Screening: Stool Based Tests negative Historical Provider HEALTH MAINTENANCE Final Result * Hepatitis C Screening (04/07/2012) [facility] Hepatitis C Screening negative Historical Provider HEALTH MAINTENANCE Final Result from Last 3 Months or Most Recently Relevant to Health Maintenance Insurance BL[place]
== END 2025-02-07 14:15 | disposition home or self-care (01) ==
LOC: HO.HPS 13:48
PROVIDERS: PCP Internal Medicine; Visit Provider Hospitalist
DX: R05.3 Chronic cough (principal); J45.41 Moderate persistent asthma with (acute) exacerbation; J41.8 Mixed simple and mucopurulent chronic bronchitis; R05.8 Other specified cough; M05.9 Rheumatoid arthritis with rheumatoid factor, unspecified; R91.8 Other nonspecific abnormal finding of lung field
CPT/HCPCS: 99214

== ENCOUNTER → 2025-02-07 13:47 | Outpatient (BNVA) | payer MEDICARE, SELFPAY | PROVIDERS: PCP Internal Medicine; Visit Provider Hospitalist | DX: R05.3 Chronic cough (principal); J45.41 Moderate persistent asthma with (acute) exacerbation; J41.8 Mixed simple and mucopurulent chronic bronchitis; R91.8 Other nonspecific abnormal finding of lung field; M05.9 Rheumatoid arthritis with rheumatoid factor, unspecified | CPT/HCPCS: 99212 ==

== ENCOUNTER 2025-04-17 08:28 | Outpatient (REF) | payer MEDICARE, SELFPAY ==
[2025-04-17 13:02] LABS: MANUAL DIFF FLAG NO
[2025-04-17 13:11] LABS: Hematocrit 37.3 % (37.0-47.0); Hemoglobin 12.2 g/dl (12.0-16.0); Imm Gran Abs Auto 0.01 X10*3/uL (0.00-0.03); Imm Gran Pct Auto 0.2 % (0.0-0.4); Lymphocytes Absolute Auto 2.2 X10*3/uL (1.2-4.9); Mean Corpuscular HGB Conc 32.7 g/dl (31.0-35.0); Mean Corpuscular Hemoglobin 31.5 pg (27.0-33.0); Mean Corpuscular Volume 96.4 fL (80.0-98.0); NRBC Abs Auto 0.000 X10*3/uL (0.0-0.012); NRBC Pct Auto 0.0 /100WBC (0.0-0.2); Platelet Count 328 X10*3/uL (160-400); Red Blood Count 3.87 X10*6/uL (4.20-5.50); White Blood Count 6.0 X10*3/uL (4.8-10.8)
[2025-04-17 13:43] LABS: HBS Num1 0.19 mIU/mL (0-7.99)
[2025-04-17 13:44] LABS: HBc Num1 0.04 S/CO (0.00-0.79); HBsAGNum1 0.34 S/CO (0.00-0.99); Hepatitis B Surface Antigen Negative (Negative); ~HepC Num1 0.11 S/CO (0.00-0.79); ~Hepatitis B Surface Antibody NONREACTIVE (Nonreactive); ~Hepatitis C Antibody Nonreactive (Nonreactive)
== END 2025-04-17 08:29 | disposition home or self-care (01) ==
LOC: HO.HKASLDS 08:28
PROVIDERS: PCP Internal Medicine; Visit Provider Internal Medicine Rheumatology
DX: M05.9 Rheumatoid arthritis with rheumatoid factor, unspecified (principal); Z79.899 Other long term (current) drug therapy
CPT/HCPCS: 36415; 85025; 86431; 86704; 86706; 86803; 87340; 99212

== ENCOUNTER 2025-04-17 08:28 | Outpatient (AMB) | payer MEDICARE, SELFPAY ==
--- NOTE | 2025-04-17 08:31 | A.OFFVIS_ITS ---
Vital Signs 04/17/25 08:32 Height 5 ft 3 in Weight 206 lb 12.697 oz BMI 36.6 BP 130/80 Blood Pressure Location Rt brachial Position Sitting Pulse 98 Pulse Source Pulse Oximeter Pulse Oximetry (%) 100 Oxygen Delivery Method Room Air Intake Visit Reasons: RA Intake Note: Patient presents for RA. Accompanied by: Spouse Allergies caffeine (From Excedrin Migraine) Allergy (Intermediate, Verified 04/17/25 08:32) Hives Penicillins Allergy (Intermediate, Verified 04/17/25 08:32) Hives dust Allergy (Mild, Uncoded 12/07/24 13:31) Unknown HPI HPI RA: Details: Morning stiffness is 5-10 minutes. She is experiencing pain in her lower extremities with swelling in the last 4 months. She recently had ultrasounds of her legs, which did not show a DVT. PA at PCP's office ordered blood work which showed normal NT pro BNP. No recent infections. She had two pre cancers lesions on her face exercised. She will be following up with Dermatology in May. She is experiencing pain in her lower back. She has increased pain with doing chores such as bending. She has not self medicating. She is not applying heat to back. ON LICENSE OF [facility] Medical History Pulmonary nodules Upper airway cough syndrome Chronic bronchitis Reactive airway disease Chronic cough Long-term use of immunosuppressant medication Osteoarthritis of foot, left Osteoarthritis of foot, right Seropositive rheumatoid arthritis Surgical History History of knee joint replacement Social History Household Members: Spouse Housing: Apartment Are you a primary care advocate to a significant other at home: No Do you presently have visiting nurse or other home services: No 75 years or older and lives alone: No Alcohol intake: never Patient Tobacco Use Status: Former Tobacco user Years Smoked: Quit 1983 e-Cigarette/Vaping Use: Never Used service: No Current occupational status: retired Physical Exam Vital Signs: Last Vital Signs Pulse 98 04/17/25 08:32 BP 130/80 04/17/25 08:32 Pulse Ox 100 04/17/25 08:32 Oxygen Delivery Method Room Air 04/17/25 08:32 BMI result Body Mass Index 36.6 Const Other: General: Comfortable CVS: RRR Respiratory: clear to auscultation bilaterally. Good respiratory effort Skin: There is an ulcerated lesion was well demarcated circular edge on nasal bridge and on cheek near nose. Scab is present on both of the lesions. She has purplish discoloration of toes left worse than right. MSK: Tender to palpate right 2nd MCP, bilateral PIPs and left wrist. No synovitis. She is able to make a fist with her hands. Normal range of motion of upper extremities. She has diffuse soft tissue swelling of dorsal feet up to 1/3 of lower srivastava. Tender to palpate MTPs and ankles. Tender to palpate lumbar spinous process and right paraspinal muscles. Good lumbar flexion. Assessment & Plan Assessment & Plan (1) Seropositive rheumatoid arthritis: Comment: Inflammatory arthritis is controlled on Humira. She has developed lower extremity swelling due to edema. Rheumatology history: Seropositive (RF, CCP) Onset 02/2012. MTX 04/2012; Enbrel added 04/2013; methotrexate stopped 04/2014 due to elevated lfts. HCQ added 06/16 014, 06/2021 - Hydroxychloroquine stopped due to nausea. 06/2016: Humira monotherapy- Code(s): M05.9 - Rheumatoid arthritis with rheumatoid factor, unspecified Category: Medical Plan: PCP follow-up for further workup for lower extremity swelling. We discussed importance of getting an echocardiogram. If patient has congestive heart failure, she will need to discontinue Humira as TNF inhibitors are contraindicated with CHF. Wear compression stockings Elevate legs Continue Humira 40 mg subcutaneous injection every 14 days Labs for drug monitoring ordered Baseline hand and feet x-rays ordered Return to clinic in 3 months (2) Long-term use of immunosuppressant medication: Code(s): Z79.899 - Other skilled nursing (current) drug therapy Category: Medical Plan: See above (3) Low back pain: Comment: Chronic. Limiting function. Myofascial strain is contributing. I will order x-ray for further evaluation of joint pathology contributing. Code(s): M54.50 - Low back pain, unspecified Category: Medical Plan: X-ray lumbar spine ordered Apply heat to back Try lidocaine patches I will consider ordering PT after x-ray results are back Return to clinic in 3 months Orders: Orders XR lumbar spine 2-3V Today M54.50 - Low back pain, unspecified Complete Blood Count Auto Diff Today M05.9 - Rheumatoid arthritis with rheumatoid factor, unspecified, Z79.899 - Other terminal block assembler (current) drug therapy Hepatitis B,C Profile Today M05.9 - Rheumatoid arthritis with rheumatoid factor, unspecified, Z79.899 - Other terminal block assembler (current) drug therapy Rheumatoid Factor Today M05.9 - Rheumatoid arthritis with rheumatoid factor, unspecified, Z79.899 - Other skilled nursing (current) drug therapy XR Hand Bilat min 3v Today M05.9 - Rheumatoid arthritis with rheumatoid factor, unspecified, Z79.899 - Other skilled nursing (current) drug therapy XR Foot [place] 3V Today M05.9 - Rheumatoid arthritis with rheumatoid factor, unspecified, Z79.899 - Other terminal block assembler (current) drug therapy Coding Level of Care Code Est Pt Level 4 (31508) Complex EM visit Add On G2211 Diagnoses Seropositive rheumatoid arthritis M05.9 Long-term use of immunosuppressant medication Z79.899 Low back pain M54.50
[2025-04-17 08:32] VITALS: BP 130/80; PULSE 98; O2SAT 100; BMI 36.6
--- OUTSIDE RECORDS SUMMARY | 2025-04-17 08:54 | XMS_ITS ---
[facility] Care Team Organization Name Specialty Phone Email Start Date End Da te [facility] OMAR PORRAS Primary Care 06/22/2022 04/02/2024
--- OUTSIDE RECORDS SUMMARY | 2025-04-17 08:54 | XMS_ITS | Clinical Summary ---
Author Organization [facility] Address [address] [place] [address] Phone Care Team Providers Care Cigar Head Puncher Name Role Phone Unavailable Primary Care Provider Unavailabl e Allergies Active Allergy Reactions Criticality Noted Date Comments Ireafgi-Gbkiovcyaiumo-Olwabjsg Hives 09/30 Penicillins Hives 09/20/2005 Medications adalimumab [...] Plan: Patient has history of PACs. Her registered nurse cardiac telemetry showed a burst of atrial tachycardia in [...] for 10 yrs Seropositive rheumatoid arth ritis ([facility] V24, [facility] V28) 04/21/2012 Overview (10/21/2023): Onset February 2012, [...] in the KNEE ARTHROSCOPY W/ DEBRIDEMENT PROCEDURE: [place] ARTHRS KNEE DEBRIDEMENT/SHAVING ARTCLR CRTLG; COMMENT: left [...] Father (Age 83) lung cance r Mother MS, Asthma Sister 1 4 : sister with MS and stent placement age 52 [ from [...] Screening: Stool Based Tests (FOBT/FIT) 07/14/2022 11/03/2020 Falls Risk Assessment 07/14/2022 Medicare Annual Wellness Visit 07/14/2022 Social Influencers of Health Screening 07/14/2022 COVID-19 Vaccine (4 - 2023- season) 2024 07/06/2021, 11/22/2020, 11/01/2020 Depression Screening 08/15/2024 Influenza Vaccine (#1) 2025 4, 07/06/2022, 07/06/2021, Additional history exists Breast Cancer Screening 06/21/2026 06/21/20 24, 10/25/2021, 10/24/2021, Additional history exists Cholesterol Screening (Lipid Panel) 08/22/2028 08/22/2023 DTaP,Tdap,and Td Vaccines (4 - Td or Tdap) 06/19/2030 06/19/2020, 01/27/2009, 11/15/2003 Osteoporosis Screening (Bone Density Screening) 03/08/2032 03/08/2022, 03/01/2018 Hepatitis C Screening Completed 04/07/2012 Pneumococcal Vaccine: 50+ Years Completed 09/11/2019, 03/13/2015, 04/21/2012 HIB Vaccines Aged Out No longer eligi [...] Diagnosis Comments MG MAMMO DIGITAL SCREENING W CAREY BILAT Routine 06/21/2024 2:16 PM EST Visit [...] Results * MG Mammo Digital Screening w Carey bilat (06/21/2024 2:16 PM EST) Anatomical Region [...] Signed Date: 06/21/2024 15:57 ET Workstation ID: [id number] Transcribed By: Self Edit Transcribed Date: 06/21/2024 15:48 ET Narrative 06/21/2024 3:57 PM EST EXAM: SCREENING MAMMOGRAPHY, BILATERAL HISTORY: SCREENING. No additional history. COMPARISON: 10/24/2021, 03/18/2020 TECHNIQUE: Synthesized CC and MLO projections of each breast. Tomosynthesis of each breast in the CC and MLO projections. ADDITIONAL IMAGING: None Computer-aided detection was employed with the [employer] AI 3-D. TISSUE DENSITY: There are scattered [...] Signed Date: 06/21/2024 15:57 ET Workstation ID: [id number] Transcribed By: Self Edit Transcribed Date: 06/21/2024 [...] (World Health Organization Fracture Risk Assessment) [facility] Department of Internal Medicine recommends using National [...] alternative screening schedule based on madiha Tellez., [facility] September 02, 2011 for patients with osteopenia [...] years. (World HealthOrganization Fracture Risk Assessment) [facility] Department of Internal Medicine recommendsusing National Osteoporosis [...] esult * Stool Based Tests (FOBT/FIT) (11/03/2020) [facility] Colorectal Cancer Screening: Stool Based Tests negative Historical Provider HEALTH MAINTENANCE Final Result * Hepatitis C Screening (04/07/2012) [facility] Hepatitis C Screening negative Historical Provider HEALTH MAINTENANCE Final Result from Last 3 Months or Most Recently Relevant to Health Maintenance Insurance BLUE [employer] - [place] MEDICARE ADVANTAGE
== END 2025-04-17 09:24 | disposition home or self-care (01) ==
LOC: HO.RHES 08:29
PROVIDERS: PCP Internal Medicine; Visit Provider Internal Medicine Rheumatology
DX: M05.9 Rheumatoid arthritis with rheumatoid factor, unspecified (principal); Z79.899 Other long term (current) drug therapy; M54.50 Low back pain, unspecified
CPT/HCPCS: 99214; G2211

== ENCOUNTER 2025-06-10 13:36 | Outpatient (AMB) | payer MEDICARE, SELFPAY ==
[2025-06-10 13:39] VITALS: BP 128/76; PULSE 78; O2SAT 98; BMI 36.3
--- NOTE | 2025-06-10 13:39 | MHC.OFFVIS ---
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 The patient was in her usual state health until April when she was sick with a URI and chest congestion. The patient was evaluated in urgent care and she was treated and released. After that she started developing a cough. The cough tends to be moderate severe. Typically worse at nighttime. The cough can sometimes be productive bringing up some thick white phlegm. She has been evaluated multiple times for this including taking a course of prednisone and also a rescue inhaler in addition to that had been given a course of antibiotics. She had not seen any significant improvement so therefore she had further testing including PFTs that I do not have right now and she also underwent a CT scan of the chest which I did review the report. No evidence of any significant interstitial lung disease or airway issues that the CT scan report mentions. Although she did have a small nodular density that will need additional follow-up. On exam she does have some end expiratory wheezing and cough tends to be congested in nature. During the office visit we did do a nebulized treatment with DuoNeb and her breathing did improve. I do believe that she has evidence of chronic bronchitis was probably precipitated by a viral syndrome. Will go ahead and provide her a nebulizer in order for her to do Xopenex twice a day followed by Acapella valve for chest PT. in addition to that. The patient patient course of prednisone and doxycycline to clear any underlying smoldering infection. Right now patient understands that she is immunocompromised while being on the Humira. Will reassess her symptoms when she returns in 6-8 weeks if she continues to be symptomatic then will do allergy testing immunological testing to assess her immune system. 02/07/2025 the patient is here for a pulmonary follow-up visit. Overall the patient has been feeling better. She then completed antibiotics and the prednisone at that time. Although her arthritis has been more significantly active and therefore she has been on some prednisone for that. She has been retaining some fluid and also has had elevated blood pressure. I explained to her that it is likely from all the steroids. She will talk to her tool grinding technician regarding cutting down. In the meantime she continues in the [facility]. We did review the CT scan of the size that she had back in October 2024 at [place]. The patient does have underlying pulmonary nodules subcentimeter in size. Should get a repeat CAT scan sometime in the spring. In addition to that she had PFTs which are relatively normal except for decrease in the DLCO. She did get a nebulizer and she has been using it. She did not get the Acapella valve for CPT I will request for at this time. The patient will return in the fall. if she is doing well though she can always come in in spring after her CAT scan. 06/10/2025 the patient is here for pulmonary follow-up visit. Overall she is feeling well. Denies any significant chest tightness or shortness of breath. Has not had any wheezing. Her major complaint is a postnasal drip and a fullness of her throat area. She is coughing some but intermittently. She does take allergy medicine. Otherwise the patient is without any other complaints. She did undergo a CT scan of the chest back in the spring which I personally reviewed demonstrating some multiple pulmonary nodules that are subcentimeter in size. She is scheduled to undergo a repeat CAT scan sometime in November 2025. And will follow-up sometime after that. In the meantime she will continue with the allergy medicine and will add Singulair to her regimen. She will continue with the nasal sprays. And she can also use [employer] for cough suppressant. If she has any issues prior to the next visit she can always call for further recommendations. [facility] Medical History Pulmonary nodules Upper airway cough syndrome Chronic bronchitis Reactive airway disease Chronic cough Long-term use of immunosuppressant medication Osteoarthritis of foot, left Osteoarthritis of foot, right Seropositive rheumatoid arthritis Surgical History History of knee joint replacement Social History Household Members: Spouse Housing: Apartment Are you a primary home care physical therapist to a significant other at home: No Do you presently have visiting nurse or other home services: No 75 years or older and lives alone: No Alcohol intake: never Patient Tobacco Use Status: Former Tobacco user Years Smoked: Quit 1983 e-Cigarette/Vaping Use: Never Used service: No Current occupational status: retired Review of Systems Const Denies chills, Denies daytime sleepiness, Denies fatigue, Denies fever(s), Denies poor appetite, Denies stops breathing during sleep, Denies weakness, Denies weight gain and Denies weight loss Eyes Denies loss of vision ENT Denies dizziness and Denies hearing loss Card Denies chest pain, Denies irregular heart rhythm, Denies claudication, Denies leg edema, Denies lightheadedness, Denies palpitations and Denies orthopnea Resp Reports cough, Denies hemoptysis and Denies excessive phlegm production GI Denies abdominal pain, Denies hematochezia, Denies change in bowel habits, Denies nausea and Denies vomiting Musc Reports as per HPI, Reports myalgias, Reports arthralgias, Denies muscle weakness and Denies other Skin/Breast Denies nail changes and Denies rash Neuro Denies Abnormal speech present, Denies dizziness, Denies loss of vision, Denies memory loss and Denies weakness Psych Denies depression and Denies memory loss Endo Denies fatigue and Denies palpitations Elie/Lymph Denies easy bruising Physical Exam Vital Signs: Last Vital Signs Pulse 78 06/10/25 13:39 BP 128/76 06/10/25 13:39 Pulse Ox 98 06/10/25 13:39 Oxygen Delivery Method Room Air 06/10/25 13:39 BMI result Body Mass Index 36.3 Const General: cooperative, healthy appearing and comfortable Orientation/consciousness: patient oriented x3 Limitations: no limitations HEENT Head: Yes normocephalic and Yes atraumatic Mouth: moist mucous membranes Neck Neck: Yes supple Chest Chest palpation & inspection: normal inspection of the chest Resp Effort & Inspection: normal respiratory effort and able to speak in complete sentences Auscultation: clear to auscultation bilaterally Cardio Rate: regular rate GI Palpation (GI): Soft to palpation Skin General skin exam: dry skin Neuro General: patient oriented x3 Speech: No Abnormal speech present Extrem General: No clubbing and No cyanosis Assessment & Plan Assessment & Plan (1) Chronic cough: Code(s): R05.3 - Chronic cough Category: Medical (2) Reactive airway disease: Code(s): J45.909 - Unspecified asthma, uncomplicated Category: Medical Qualifiers: Asthma complication type: with acute exacerbation Asthma persistence: persistent Asthma severity: moderate Qualified Code(s): J45.41 - Moderate persistent asthma with (acute) exacerbation (3) Chronic bronchitis: Code(s): J42 - Unspecified chronic bronchitis Category: Medical Qualifiers: Chronic bronchitis type: mixed simple and mucopurulent Qualified Code(s): J41.8 - Mixed simple and mucopurulent chronic bronchitis (4) Upper airway cough syndrome: Code(s): R05.8 - Other specified cough Category: Medical (5) Seropositive rheumatoid arthritis: Comment: Inflammatory arthritis is controlled on Humira. She has developed lower extremity swelling due to edema. Rheumatology history: Seropositive (RF, CCP) Onset 02/2012. MTX 04/2012; Enbrel added 04/2013; methotrexate stopped 04/2014 due to elevated lfts. HCQ added 06/2014, 06/2021 - Hydroxychloroquine stopped due to nausea. 06/2016: Humira monotherapy- Code(s): M05.9 - Rheumatoid arthritis with rheumatoid factor, unspecified Category: Medical (6) Pulmonary nodules: Code(s): R91.8 - Other nonspecific abnormal finding of lung field Category: Medical Plan nebs with xopenex BID CPT with acapella valve Tessalon pearls as needed nasal steroid spray start singulair sinus rinse repeat CT chest 11/2025 F/U 6 months Medications: New benzonatate 200 mg PO BID PRN 60 caps 0RF cough 30 days montelukast (Singulair) 10 mg PO BEDTIME 30 tabs 11RF 30 days J45.909 - Unspecified asthma, uncomplicated Coding Level of Care Code Est Pt Level 4 (21167) Complex EM visit Add On G2211 Diagnoses Chronic cough R05.3 Moderate persistent reactive airway disease with acute exacerbation J45.41 Asthma complication type: with acute exacerbation Asthma persistence: persistent Asthma severity: moderate Mixed simple and mucopurulent chronic bronchitis J41.8 Chronic bronchitis type: mixed simple and mucopurulent Upper airway cough syndrome R05.8 Seropositive rheumatoid arthritis M05.9 Pulmonary nodules R91.8 Time Spent (min) 17
--- OUTSIDE RECORDS SUMMARY | 2025-06-10 17:15 | XMS_ITS | Clinical Summary ---
Author Organization [facility] Address [address] [place] [address] Phone Care Team Providers Care International Controller Name Role Phone [place] Valenzuela MD Primary Care Provider [phone] Allergies Active Allergy Reactions Criticality Noted Date Comments Duierpd-Huytioyysaxnw-Xmrazooh Hives 09/30 Penicillins Hives 09/20/2005 Medications adalimumab [...] Plan: Patient has history of PACs. Her change lead showed a burst of atrial tachycardia in [...] for 10 yrs Seropositive rheumatoid arth ritis ([facility] V24, [facility] V28) 04/21/2012 Overview (10/21/2023): Onset February 2012, [...] in the KNEE ARTHROSCOPY W/ DEBRIDEMENT PROCEDURE: [place] ARTHRS KNEE DEBRIDEMENT/SHAVING ARTCLR CRTLG; COMMENT: left [...] DX:Major depressive disorder , recurrent episode, moderate ([facility]) Obesity, unspecified 09/30/2005 DX:Obesity, unspecified Other [...] Father (Age 83) lung cance r Mother AK, Asthma Sister 1 4 : sister with AK and stent placement age 52 [ from [...] 08/22/2024 10:00 AM EST Plan of Treatment Upcoming Encounters Date Type Department Care Team (Late st Contact Info) Description 06/22/2025 10:15 AM EST Appointment [facility] [address] [address] Health Maintenance Due Date Last Done Comments Hepatitis A Vaccines (1 of 2 - Risk 2-dose series) 1973 RSV Immunization Adult Patients (1 - Risk 50-74 years 1-dose series) 02/04/2004 Zoster Vaccines (1 of 2) 02/04/2004 Hepatitis B Vaccines (1 of 3 - Risk 3-dose series) 2014 Colorectal Cancer Screening: Stool Based Tests (FOBT/FIT) 07/14/2022 11/03/2020 Falls Risk Assessment 07/14/2022 Medicare Annual Wellness Visit 07/14/2022 Social Influencers of Health Screening 07/14/2022 Depression Screening 08/15/2024 COVID-19 Vaccine ( season) 2025 07/06/2021, 11/22/2020, 11/01/2020 Influenza Vaccine (#1) 2025 , 07/06/2022, 07/06/2021, Additional history exists Breast Cancer [...] site HM STOOL BASED TEST Routine 11/03/2020 HM HEPATITIS C SCREENING Routine 04/07/2012 from Last [...] Signed Date: 06/21/2024 15:57 ET Workstation ID: [id number] Transcribed By: Self Edit Transcribed Date: 06/21/2024 15:48 ET Narrative 06/21/2024 3:57 PM EST EXAM: SCREENING MAMMOGRAPHY, BILATERAL HISTORY: SCREENING. No additional history. COMPARISON: 10/24/2021, 03/18/2020 TECHNIQUE: Synthesized CC and MLO projections of each breast. Tomosynthesis of each breast in the CC and MLO projections. ADDITIONAL IMAGING: None Computer-aided detection was employed with the [employer] AI 3-D. TISSUE DENSITY: There are scattered [...] None Computer-aided detection was employed with the [employer] AI 3-D. TISSUE DENSITY: There are scattered [...] Signed Date: 06/21/2024 15:57 ET Workstation ID: [id number] Transcribed By: Self Edit Transcribed Date: 06/21/2024 15:48 ET us Jaqueline Harrington MD IMG BI PROCEDURES Final Result * Lipid panel (08/22/2023) LDL/HDL Ratio 2 Triglycerides 116 mg/dL Cholesterol 159 mg/dL HDL 86 mg/dL LDL Cholesterol 50 mg/dL Blood Venous blood specimen / Unknown us Historical Provider LAB BLOOD ORDERABLES Evelyn l [...] (World Health Organization Fracture Risk Assessment) [facility] Department of Internal Medicine recommends using National [...] alternative screening schedule based on madiha Tellez., [facility] September 02, 2011 for patients [...] years. (World HealthOrganization Fracture Risk Assessment) [facility] Department of Internal Medicine recommendsusing National Osteoporosis [...] FRAX. Optional alternative screening schedule based on maidha Tellez., [place] for patients with osteopenia (based on hip BMD T-score) is as follows: * advanced osteopenia (T scores -2.00 to -2.49), BMD testing every year * moderate osteopenia (T scores -1.50 to -1.99), BMD testing every 5years mild osteopenia or normal BMD (T scores -1.50 and higher), BMD testingevery 15 years Nancy LOOMIS IMG DXA PROCEDURES Final R esult * Stool Based Tests (FOBT/FIT) (11/03/2020) [facility] Colorectal Cancer Screening: Stool Based Tests negative Historical Provider HEALTH MAINTENANCE Final Result * Hepatitis C Screening (04/07/2012) [facility] Hepatitis C Screening negative Historical Provider HEALTH MAINTENANCE Final Result from Last 3 Months or Most Recently Relevant to Health Maintenance Insurance [employer] [employer] Care Teams International Controller Relationship Specialty Start Date End Date Jamaica Valenzuela MD [address] [place] [address] PCP - General Internal Medicine 05/16/25
== END 2025-06-10 14:03 | disposition home or self-care (01) ==
LOC: HO.HPS 13:37
PROVIDERS: PCP Internal Medicine; Visit Provider Hospitalist
DX: R05.3 Chronic cough (principal); J45.41 Moderate persistent asthma with (acute) exacerbation; J41.8 Mixed simple and mucopurulent chronic bronchitis; R05.8 Other specified cough; M05.9 Rheumatoid arthritis with rheumatoid factor, unspecified; R91.8 Other nonspecific abnormal finding of lung field
CPT/HCPCS: 99214; G2211

== ENCOUNTER → 2025-06-10 13:36 | Outpatient (BNVA) | payer MEDICARE, SELFPAY | PROVIDERS: PCP Internal Medicine; Visit Provider Hospitalist | DX: R91.8 Other nonspecific abnormal finding of lung field (principal); J45.41 Moderate persistent asthma with (acute) exacerbation; J41.8 Mixed simple and mucopurulent chronic bronchitis; M05.9 Rheumatoid arthritis with rheumatoid factor, unspecified; R05.8 Other specified cough; R05.3 Chronic cough; Z79.899 Other long term (current) drug therapy; Z87.891 Personal history of nicotine dependence; Z79.620 Long term (current) use of immunosuppressive biologic | CPT/HCPCS: 99212 ==

== ENCOUNTER 2025-06-14 08:54 | Outpatient (REF) | payer MEDICARE, SELFPAY ==
--- NOTE | ~2025-06-14 | XR_ITS ---
EXAMINATION: XR LUMBOSACRAL SPINE CLINICAL INFORMATION: M54.50 - Low back pain, unspecified COMPARISON: None available. TECHNIQUE: AP and lateral views FINDINGS: Multilevel marginal osteophyte formation and endplate sclerosis and decreased intervertebral disc height throughout the axial skeleton. 1 mm anterolisthesis at L4-5. 1 mm retrolisthesis at L2-3. Bilateral facet joint hypertrophy at L4-5 and L5-S1. No lytic or blastic lesions. Vascular calcifications, aorta. Vascular clips in the left lower quadrant abdomen and pelvis XR/XR lumbar spine 2-3V IMPRESSION: Multilevel thoracolumbar spondylosis resulting in grade 1 anterolisthesis L4-5 and grade 1 retrolisthesis L2-3. Electronically signed by: Rigoberto Hernández MD 06/14/2025 09:40 AM EDT
--- NOTE | ~2025-06-14 | XR_ITS ---
EXAMINATION: XR FOOT 3 OR MORE VIEWS BILATERAL HISTORY: M05.9 - Rheumatoid arthritis with rheumatoid factor, unspecified COMPARISON: There are no prior studies available for comparison. FINDINGS: Six views of the bilateral feet are submitted. Osseous mineralization is normal. There is no fracture or dislocation. The patient is status post fusion of the 1st MTP joint of the right foot with a sideplate and multiple orthopedic screws. The remaining joint spaces are preserved. There are calcaneal spurs bilaterally at the plantar aspect and at the insertion of the Achilles tendons. The soft tissues are unremarkable. XR/XR Foot [place] 3V IMPRESSION: Status post fusion of the right 1st MTP joint. Calcaneal spurs as described. Otherwise unremarkable examination of the bilateral feet. Electronically signed by: Diego Werner MD 06/14/2025 10:17 AM EDT
--- NOTE | ~2025-06-14 | XR_ITS ---
EXAMINATION: XR HAND, BILATERAL CLINICAL INFORMATION: M05.9 - Rheumatoid arthritis with rheumatoid factor, unspecified COMPARISON: None available. TECHNIQUE: PA, lateral, and oblique views both hands . FINDINGS: RIGHT HAND : Asymmetric joint space narrowing involving the proximal distal interphalangeal joints. No bony erosions. No soft tissue calcifications. No lytic or blastic lesions. No gross sclerosis along the articular surfaces. No subcutaneous emphysema. No lytic or blastic lesions. LEFT HAND : Asymmetric joint space narrowing involving the proximal distal interphalangeal joints. No bony erosions. No soft tissue calcifications. No lytic or blastic lesions. No gross sclerosis along the articular surfaces. No subcutaneous emphysema. No lytic or blastic lesions. XR/XR Hand Bilat min 3v IMPRESSION: Mild osteoarthritis/osteoarthrosis in the digits of the hands. Electronically signed by: Rigoberto Hernández MD 06/14/2025 10:15 AM EDT
== END 2025-06-14 08:55 | disposition home or self-care (01) ==
LOC: HO.XRAY 08:54
PROVIDERS: Visit Provider Internal Medicine Rheumatology
DX: M54.50 Low back pain, unspecified (principal); M05.9 Rheumatoid arthritis with rheumatoid factor, unspecified; Z79.899 Other long term (current) drug therapy
CPT/HCPCS: 72100; 73130; 73630

== ENCOUNTER → 2025-06-14 09:04 | Outpatient (BNV) | payer MEDICARE, SELFPAY | PROVIDERS: Visit Provider Radiology Diagnostic Radiology | DX: M54.50 Low back pain, unspecified (principal); M05.9 Rheumatoid arthritis with rheumatoid factor, unspecified | CPT/HCPCS: 72100; 73130; 73630 ==

== ENCOUNTER 2025-07-19 11:16 | Outpatient (REF) | payer MEDICARE, SELFPAY ==
[2025-07-19 13:18] LABS: MANUAL DIFF FLAG NO
[2025-07-19 13:23] LABS: Hematocrit 42.4 % (37.0-47.0); Hemoglobin 13.7 g/dl (12.0-16.0); Imm Gran Abs Auto 0.02 X10*3/uL (0.00-0.03); Imm Gran Pct Auto 0.2 % (0.0-0.4); Lymphocytes Absolute Auto 3.6 X10*3/uL (1.2-4.9); Mean Corpuscular HGB Conc 32.3 g/dl (31.0-35.0); Mean Corpuscular Hemoglobin 30.6 pg (27.0-33.0); Mean Corpuscular Volume 94.9 fL (80.0-98.0); NRBC Abs Auto 0.000 X10*3/uL (0.0-0.012); NRBC Pct Auto 0.0 /100WBC (0.0-0.2); Platelet Count 337 X10*3/uL (160-400); Red Blood Count 4.47 X10*6/uL (4.20-5.50); White Blood Count 8.2 X10*3/uL (4.8-10.8)
--- OUTSIDE RECORDS SUMMARY | 2025-07-19 13:52 | XMS_ITS | Clinical Summary ---
Author Organization [facility] Address [address] [place] [address] Phone Care Team Providers Care Screening Technician Name Role Phone Jamaica Valenzuela MD Primary Care Provider [phone] Allergies Active Allergy Reactions Criticality Noted Date Comments Tydfryt-Xdrfmicghsqtp-Pzyxqkag Hives 09/30 Penicillins Hives 09/20/2005 Medications adalimumab [...] Plan: Patient has history of PACs. Her master pilot showed a burst of atrial tachycardia in [...] for 10 yrs Seropositive rheumatoid arth ritis ([facility]/HCC V24, [facility]/HCC V28) 04/21/2012 Overview (10/21/2023): Onset February [...] Encounters Date Type Department Care Team Description 06/22/2025 9:54 AM EST - 06/22/2025 11:59 PM [facility] Hospital Encounter [facility] at [address] [address] Encounter for screening mammogram for breast cancer Discharge Disposition: Home or Self Care from Last 3 Months Surgical History Surgery Date Site/Laterality Comments HYSTERECTOMY PROCEDURE: HISTORICAL TOTAL HYSTERECTOMY WITH BSO; COMMENT: at age 27- complete hysterectomy CHOLECYSTECTOMY PROCEDURE: HISTORICAL CHOLECYSTECTOMY; COMMENT: in the KNEE ARTHROSCOPY W/ DEBRIDEMENT PROCEDURE: DC ARTHRS KNEE DEBRIDEMENT/SHAVING ARTCLR CRTLG; COMMENT: left [...] DX:Major depressive disorder , recurrent episode, moderate ([facility]) Obesity, unspecified 09/30/2005 DX:Obesity, unspecified Other chest [...] Father (Age 83) lung cance r Mother [place], Asthma Sister 1 4 : sister with [place] and stent placement age 52 [ from CAD] Sister 2 Sister 3 Sister 4 Alive Son Alive Social History Tobacco Use Types Packs/Day Years Used Date Smoking Tobacco: Former Cigarettes 1 Q uit: 08/15/1983 Smokeless Tobacco: Never Tobacco [...] Vaccine ( season) 2025 07/06/2021, 11/22/2020, 11/01/2020 Breast Cancer Screening 06/22/2027 06/22/20, 06/21/2024, 10/25/2021, Additional history exists Cholesterol Screening (Lipid Panel) 08/22/2028 08/22/2023 DTaP,Tdap,and Td Vaccines (4 - Td or Tdap) 06/19/2030 06/19/2020, 01/27/2009, 11/15/2003 Osteoporosis Screening (Bone Density Screening) 03/08/2032 03/08/2022, 03/01/2018 Hepatitis C Screening Completed 04/07/2012 Pneumococcal Vaccine: 50+ Years Completed 09/11/2019, 03/13/2015, 04/21/2012 Influenza Vaccine Completed 05/15/2025, , 07/06/2022, Additional history exists HIB Vaccines Aged Out [...] MAMMO DIGITAL SCREENING W COOPER BILAT Routine 06/22/2025 10:12 AM EST Encounter for screening mammogram for breast cancer LIPID PANEL Routine 08/22/2023 DXA BONE DENSITY STUDY 1+ SITS AXIAL SKEL Routine 03/08/2022 10:54 AM EDT Other specified disorders of bone density and structure, unspecified site HM STOOL BASED TEST Routine 11/03/2020 HM HEPATITIS C SCREENING Routine 04/07/2012 from Last 3 Months or Most Recently Relevant to Health Maintenance Results * MG Mammo Digital Screening w Cooper bilat (06/22/2025 10:12 AM EST) Anatomical Region Laterality Modality Breast Bilateral Mammography 06/23/2025 10:4 4 AM EST Impressions 06/23/2025 10:45 AM EST Benign. BI-RADS CATEGORY: 1 - NEGATIVE RECOMMENDATION: Screening bilateral mammogram is recommended in 1 year. Mammo Location: [facility], [address] [place] [address], [facility], . -------- FINAL REPORT -------- Dictated By: Ga Gabriel Dictated Date: 06/23/2025 10:44 ET Assigned Physician: Ga Gabriel Reviewed and Electronically Signed By: Ga Gabriel Signed Date: 06/23/2025 10:45 ET Workstation ID: [id number] Transcribed By: Self Edit Transcribed Date: 06/23/2025 10:44 ET Narrative 06/23/2025 10:45 AM EST CLINICAL: 70 years old, Female, routine annual exam. COMPARISON: 06/21/2024 and 10/24/2021 TECHNIQUE: Bilateral MLO and CC views were obtained digitally with 3-D mammogram (digital breast tomosynthesis). Computer-aided detection was utilized in evaluation of this exam (CAD). FINDINGS: No suspicious mass or architectural distortion. No suspicious calcification. There has been no significant change from prior exam(s). BREAST DENSITY: A - The breasts are almost entirely fatty. Procedure Note Ga Gabriel MD - 06/23/2025 CLINICAL: 70 years old, Female, routine annual exam. COMPARISON: 06/21/2024 and 10/24/2021 TECHNIQUE: Bilateral MLO and CC views were obtained digitally with 3-Dmammogram (digital breast tomosynthesis). Computer-aided detection wasutilized in evaluation of this exam (CAD). FINDINGS: No suspicious mass or architectural distortion. No suspiciouscalcification. There has been no significant change from prior exam(s). BREAST DENSITY: A - The breasts are almost entirely fatty. IMPRESSION: Benign. BI-RADS CATEGORY: 1 - NEGATIVE RECOMMENDATION: Screening bilateral mammogram is recommended in 1 year. Mammo Location: [facility], [address] [place] [address], [facility], . -------- FINAL REPORT -------- Dictated By: Ga Gabriel Dictated Date: 06/23/2025 10:44 ET Assigned Physician: Ga Gabriel Reviewed and Electronically Signed By: Ga Gabriel Signed Date: 06/23/2025 10:45 ET Workstation ID: [id number] Transcribed By: Self Edit Transcribed Date: 06/23/2025 10:44 ET us Self Referral Sppl IMG BI PROCEDURES Final Resul t * Lipid panel (08/22/2023) LDL/HDL Ratio 2 [...] (World Health Organization Fracture Risk Assessment) [facility] Department of Internal Medicine recommends [...] alternative screening schedule based on madiha Tellez., [facility] September 02, 2011 for patients [...] years. (World HealthOrganization Fracture Risk Assessment) [facility] Department of Internal Medicine recommendsusing [...] esult * Stool Based Tests (FOBT/FIT) (11/03/2020) [facility] Colorectal Cancer Screening: Stool Based Tests negative Historical Provider HEALTH MAINTENANCE Final Result * Hepatitis C Screening (04/07/2012) [facility] Hepatitis C Screening negative Historical Provider HEALTH MAINTENANCE Final Result from Last 3 Months or Most Recently Relevant to Health Maintenance Insurance [employer] - [place] MEDICARE ADVANTAGE Care Teams Screening Technician Relationship Specialty Start Date End Date Jamaica Valenzuela MD [address] [place] [address] PCP - General Internal Medicine 05/16/25
[2025-07-19 14:09] LABS: Erythrocyte Sedimentation Rate 42 MM/HR (0-20)
[2025-07-19 19:25] LABS: Alanine Aminotransferase 23 U/L (0-31); Aspartate Amino Transferase 42 U/L (5-31); Estimated Glomerular Filt Rate > 60
== END 2025-07-19 11:17 | disposition home or self-care (01) ==
LOC: HO.HKASLDS 11:16
PROVIDERS: PCP Internal Medicine; Visit Provider Internal Medicine Rheumatology
DX: Z79.899 Other long term (current) drug therapy (principal)
CPT/HCPCS: 36415; 82565; 84450; 84460; 85025; 85652; 86140

== ENCOUNTER 2025-07-24 09:36 | Outpatient (AMB) | payer MEDICARE, SELFPAY ==
--- NOTE | 2025-07-24 09:44 | MHC.OFFVIS ---
Vital Signs 07/24/25 09:52 Height 5 ft 3 in Weight 206 lb 9.17 oz BMI 36.6 BP 132/80 Blood Pressure Location Rt brachial Position Sitting Pulse 99 Pulse Source Pulse Oximeter Pulse Oximetry (%) 98 Oxygen Delivery Method Room Air Intake Visit Reasons: 3months Intake Note: Patient presents for RA. 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 Hx of trigger finger. She had cortisone injections a year with benefit. No locking. No joint swelling. MS 3-4 minutes No recent infections PCP ordered liver US. She completed PT for her back. She has not been compliant with doing exercises daily. [facility] Medical History Pulmonary nodules Upper airway cough syndrome Chronic bronchitis Reactive airway disease Chronic cough Long-term use of immunosuppressant medication Osteoarthritis of foot, left Osteoarthritis of foot, right Seropositive rheumatoid arthritis Surgical History History of knee joint replacement Social History Household Members: Spouse Housing: Apartment Are you a primary career professional to a significant other at home: No Do you presently have visiting nurse or other home services: No 75 years or older and lives alone: No Alcohol intake: never Patient Tobacco Use Status: Former Tobacco user Years Smoked: Quit 1983 e-Cigarette/Vaping Use: Never Used service: No Current occupational status: retired Physical Exam Vital Signs: Last Vital Signs Pulse 99 07/24/25 09:52 BP 132/80 07/24/25 09:52 Pulse Ox 98 07/24/25 09:52 Oxygen Delivery Method Room Air 07/24/25 09:52 BMI result Body Mass Index 36.6 Const Other: General: Comfortable CVS: RRR Respiratory: clear to auscultation bilaterally. Good respiratory effort Skin: There is an ulcerated lesion was well demarcated circular edge on nasal bridge and on cheek near nose. Scab is present on both of the lesions. She has purplish discoloration of toes left worse than right. MSK: Tender to palpate right 2nd MCP and bilateral MTPs. No synovitis. She has palmar tenderness of left 3rd and 4th MCP with nodule palpated. She is able to make a fist with her hands. Normal range of motion of upper extremities. Results Reviewed Results Reviewed: X-rays and labs reviewed Assessment & Plan Assessment & Plan (1) Seropositive rheumatoid arthritis: Comment: Inflammatory arthritis is controlled on Humira. AST mildly elevated. PCP ordered liver ultrasound, which is scheduled for tomorrow. She has elevation in her inflammatory markers but her inflammatory arthritis is under control. She is having respiratory issues and is planning to have a CT chest for further evaluation. Rheumatology history: Seropositive (RF, CCP) Onset 02/2012. MTX 04/2012; Enbrel added 04/2013; methotrexate stopped 04/2014 due to elevated lfts. HCQ added 06/2014, 06/2021 - Hydroxychloroquine stopped due to nausea. 06/2016: Humira monotherapy- Code(s): M05.9 - Rheumatoid arthritis with rheumatoid factor, unspecified Category: Medical Plan: Continue Humira 40 mg subcutaneous injection every 14 days Labs for drug monitoring up-to-date Return to clinic in 3 months (2) Long-term use of immunosuppressant medication: Code(s): Z79.899 - Other mcfp (current) drug therapy Category: Medical Plan: See above (3) Low back pain: Comment: Chronic. Improved with PT. She has lumbar spondylosis and myofascial strain contributing. Code(s): M54.50 - Low back pain, unspecified Category: Medical Plan: Continue to do home exercise program learned from PT Apply heat to back Try lidocaine patches (4) Flexor tenosynovitis of finger: Comment: Left 3rd and 4th. Prior history of trigger finger affecting left 3rd and 4th. We discussed conservative management. Code(s): M65.9 - Synovitis and tenosynovitis, unspecified Category: Medical Plan: Exercises printed for patient Return to clinic in 3 months or sooner if needed if she develops trigger finger for cortisone injection Medications: Refilled adalimumab Start on day 29 of therapy- citrate free 40 mg (0.4 mL) subcut Q2W 2 ea 5RF Coding Level of Care Code Est Pt Level 4 (04427) Add On Problem Visit Only Diagnoses Seropositive rheumatoid arthritis M05.9 Long-term use of immunosuppressant medication Z79.899 Low back pain M54.50 Flexor tenosynovitis of finger M65.9
[2025-07-24 09:52] VITALS: BP 132/80; PULSE 99; O2SAT 98; BMI 36.6
== END 2025-07-24 10:20 | disposition home or self-care (01) ==
LOC: HO.RHES 09:37
PROVIDERS: PCP Internal Medicine Infectious Disease; Visit Provider Internal Medicine Rheumatology
DX: M05.9 Rheumatoid arthritis with rheumatoid factor, unspecified (principal); Z79.899 Other long term (current) drug therapy; M54.50 Low back pain, unspecified; M65.90 Unspecified synovitis and tenosynovitis, unspecified site
CPT/HCPCS: 99214; G2211

== ENCOUNTER → 2025-07-24 09:36 | Outpatient (BNVA) | payer MEDICARE, SELFPAY | PROVIDERS: PCP Internal Medicine Infectious Disease; Visit Provider Internal Medicine Rheumatology | DX: M05.9 Rheumatoid arthritis with rheumatoid factor, unspecified (principal); M54.50 Low back pain, unspecified; M65.9 Synovitis and tenosynovitis, unspecified; Z79.899 Other long term (current) drug therapy | CPT/HCPCS: 99212 ==